=== PATIENT | male | born 1935 | race Caucasian/White ===

== ENCOUNTER 2021-02-03 00:32 | Inpatient (IN) ==
--- NOTE | 2021-02-03 00:18 | Internal Med History&Physical ---
HPI History of Present Illness Patient information: Note initiated : 02/03/21 at 12:17 am Service Date, if different from initiated Date: [] Patient: Marbin Faustin a 85 y/o M admitted on for Septic, Covid+. Chief Complaint: [altered mental status, general body weakness, diarrhea] History of present illness: Mr. Faustin is a 85 year old M history of type 2 diabetes mellitus, essential hypertension's, mixed dyslipidemia, chronic kidney disease, hypothyroidism, leukemia, presenting with 4-day history of general body weakness, altered mental status, diarrhea, and lower back pain. There was no prior similar episode. Patient has a significant sick contact with who was being diagnosed with Covid pneumonia 3 days ago. Patient was in his usual state of health until 4 days ago when he was noted by family to have altered mental status, general body weakness, lower back pain, and diarrhea. He was not complaining of shortness of breath cough or wheezing. There was no note fever, chills, or diaphoresis. There was no nausea or vomiting. Due to the worsening nature of his symptoms, he was being brought to [facility] ED for further evaluations. Vital signs were significant for tachycardia and tachypnea. Labs were significant with leukocytosis with WBC 35 with baseline in the 30s. Procalcitonin level mildly elevated to 0.5. Lactic exit elevated to 3. He was also found to have hyperkalemia with serum potassium level 5.3. Serum creatinine level 2.4. He was given 2.1 L NS fluids boluses as well as 1 dose of Rocephin and Zithromax, respectively. Admission request was made due to bed unavailability in their own hospital. Constitutional Constitutional: Present fatigue and weakness; Absent chills, excessive sweating and fever(s) EENT Eyes: Absent blurry vision, change in vision, loss of vision and other visual disturbances Ears: Absent decreased hearing and tinnitus Nose, mouth and throat: Absent abnormal hearing, dry mouth, headache(s), nasal congestion and sore throat Cardiovascular Cardiovascular: Absent chest pain, chest pain at rest, edema, irregular heart rhythm and palpatations Respiratory Respiratory: Absent cough, dyspnea and wheezing Gastrointestinal Gastrointestinal: Present diarrhea; Absent abdominal pain, constipation, nausea and vomiting Musculoskeletal Musculoskeletal: Absent back pain, deformity, limited range of motion, muscle cramps, muscle weakness and numbness Integumentary Integumentary: Absent lesions, rash and wounds Neurological Neurological: Present confusion; Absent focal weakness, headache(s) and numbness Psychiatric Psychiatric: Absent anxiety, depression and hallucinations PFSH PFSH All Active Problems (Updated 02/03/21 @ 00:27 by Kain Barrett MD) Delirium (Acute) Hyperkalemia (Acute) Community acquired pneumonia (Acute) Pneumonia due to COVID-19 virus (Acute) Acute kidney injury (Acute) Adenocarcinoma, colon (Chronic) Acute allergic reaction (Chronic) Restless leg syndrome (Chronic) Arthritis (Chronic) Carpal tunnel syndrome (Chronic) Syncope (Chronic) Hyperlipidemia (Chronic) Allergic rhinitis (Chronic) Diabetic neuropathy (Chronic) Psoriasis (Chronic) Disc disease with myelopathy, lumbar (Chronic) Spinal stenosis of lumbar region (Chronic) Leukemia, lymphocytic, chronic (Chronic) Hypothyroidism (Chronic) Hypertension (Chronic) Diabetes mellitus (Chronic) Acute right heart failure (Chronic) Medical History (Updated 02/03/21 @ 00:27 by Kain Barrett MD) Acute allergic reaction Acute right heart failure Adenocarcinoma, colon Allergic rhinitis Arthritis Carpal tunnel syndrome Diabetes mellitus Diabetic neuropathy Disc disease with myelopathy, lumbar Hyperlipidemia Hypertension Hypothyroidism Leukemia, lymphocytic, chronic Psoriasis Restless leg syndrome Spinal stenosis of lumbar region Syncope Surgical History (Updated 05/27/19 @ 16:08 by Bibi Cruz) History of colonoscopy (~04/11/13) Dr. Cisneros S/P colon resection (~1997) Family History (Updated 05/27/19 @ 16:08 by Bibi Cruz) Other No pertinent family history Social History (Updated 05/27/19 @ 16:09 by Bibi Cruz) marital status: service: Yes occupational status: retired alcohol intake frequency: does not drink substance use type: does not use MEDS/ALLERGIES Home Medications and Allergies Home Medications Medication Instructions Recorded Confirmed Type Accu-Chek Araceli in Vitro Strip NOTAPPLIC 05/27/19 History Accu-Chek Multiclix Lancets NOTAPPLIC 05/27/19 History Dextrose Solution 24GM/3GM NOTAPPLIC 05/27/19 History blood-glucose meter #1 each 05/27/19 05/27/19 History carbidopa 25 mg-levodopa 100 mg 1 tab PO QHS 05/27/19 05/27/19 History tablet cholecalciferol (vitamin D3) 100 5,000 unit PO QDAY cap 05/27/19 05/27/19 History mcg (4,000 unit) capsule cyanocobalamin (vitamin B-12) 500 500 mcg PO QDAY 05/27/19 05/27/19 History mcg tablet hydrochlorothiazide 25 mg tablet 25 mg PO QDAY 05/27/19 05/27/19 History insulin glargine 100 unit/mL 40 unit SUB-Q QAM ml 05/27/19 05/27/19 History subcutaneous solution levothyroxine 50 mcg tablet 50 mcg PO QDAY 05/27/19 05/27/19 History lisinopril 40 mg tablet 40 mg PO QDAY 05/27/19 05/27/19 History metformin 500 mg tablet 500 mg PO BID 05/27/19 05/27/19 History montelukast 10 mg tablet 10 mg PO QHS 05/27/19 05/27/19 History nifedipine 30 mg tablet,extended 30 mg PO QDAY 05/27/19 05/27/19 History release omeprazole 20 mg capsule,delayed 20 mg PO QDAY 05/27/19 05/27/19 History release potassium chloride 10 mEq 10 meq PO QDAY 05/27/19 05/27/19 History tablet,extended release simvastatin 20 mg tablet 20 mg PO QHS 05/27/19 05/27/19 History Allergies Allergy/AdvReac Type Severity Reaction Status Date / Time Penicillins Allergy Severe Unknown Verified 05/27/19 15:47 shrimp Allergy Intermediate Unknown Verified 05/27/19 15:47 EXAM Constitutional General appearance: cooperative and no acute distress Head Head exam: Present atraumatic and normocephalic Eye Eye exam: Present EOMI and PERRL ENT ENT exam: Present mucous membranes moist, normal exam and normal external ear exam Neck Neck exam: Present normal inspection; Absent lymphadenopathy, tenderness and thyromegaly Respiratory Respiratory exam: Absent accessory muscle use, respiratory distress and wheezes Additional comments: tachypnea Cardiovascular Cardiovascular exam: Present tachycardia; Absent JVD GI/Abdominal GI/Abdominal exam: Present normal bowel sounds and soft; Absent organomegaly and tenderness Rectal Rectal exam: Present deferred Extremities Exam Extremities exam: Present full ROM, normal capillary refill and normal inspection; Absent tenderness Neurological Exam Neurological exam: Present alert and CN II-XII intact; Absent motor sensory deficit and oriented X3 Psychiatric Psychiatric exam: Present normal affect and normal mood; Absent anxious and depressed Skin Skin exam: Present dry and intact A/P Assessment and plan (1) Hyperlipidemia: Status: Chronic (2) Hypothyroidism: Status: Chronic (3) Hypertension: Status: Chronic (4) Diabetes mellitus: Status: Chronic (5) Acute kidney injury: Status: Acute (6) Pneumonia due to COVID-19 virus: Status: Acute (7) Community acquired pneumonia: Status: Acute (8) Hyperkalemia: Status: Acute (9) Delirium: Status: Acute Narrative A/P Narrative: Assessment and plan: 1. Acute delirium likely secondary to acute infections including Covid pneumonia and community-acquired pneumonia: Inpatient PCU with telemetry Isolation protocol, abdomen and contact Serial lactic acid Inflammatory markers Procalcitonin Blood culture CBC with auto differential in the morning to trend WBC Since the patient is tolerating room air, will not initiate either Remdesivir or dexamethasone Rocephin Zithromax Status post 2.1 L NS bolus given in the ED, to be followed by NS at 100 cc/h Robitussin-DM as needed cough Tylenol as needed fever DuoNeb nebulizer as needed wheezing Supplemental oxygen therapy titrate to achieve SPO2 above or equal to 92% Ativan IV as needed anxiety Physical therapy Occupational Therapy #2 hypokalemia: Hold lisinopril Status post 2.1 L NS bolus given in the ED, to be followed by NS at 100 cc/h Repeat CMP in the morning to trend serum potassium level #3 acute kidney injury: Unknown baseline serum creatinine level Avoid nephrotoxic agents and also hold lisinopril Status post 2.1 L NS bolus given in the ED, to be followed by NS at 100 cc/h Repeat CMP in the morning to trend kidney functions #4 type 2 diabetes mellitus: Hemoglobin A1c Hold oral hypoglycemics Lantus 50 units every morning Correctional scale insulin AC at bedtime Accu-Chek AC at bedtime Hypoglycemia protocol Diabetic diet #5 history of essential hypertension's: Currently normotensive Hold lisinopril Continue nifedipine 6. History of mixed dyslipidemia: Continue statin therapy 7. History of leukemia: Questionable history, continue follow-up with outpatient oncologist upon discharge #8 hypothyroidism: Continue thyroid replacement therapy GI prophylaxis: Not currently indicated DVT prophylaxis: Heparin CODE STATUS: Full code Prognosis: Guarded Disposition: Inpatient PCU Time Spent With Patient Time: Total time spent is greater than 50% in coordination of care (as documented) at patient's floor/unit and/or counseling patient: Total time spent with greater than 50% in coordination of care (as documented) at patient's floor/unit and/or counseling patient:: Greater than 35 minutes
[~2021-02-03 00:32] MED LIST: LOPERAMIDE 2 MG CAPSULE PO PRN
[2021-02-03] MEDS ORDERED: DEXTROSE 31 GM ORAL.SUSP PO PRN (01:37)
[2021-02-03] MEDS ORDERED: SENNOSIDES 1 TABLET PO PRN (01:37)
[2021-02-03] MEDS ORDERED: LACTULOSE 20 GM/30 ML ORAL.SOL PO PRN (01:37)
[2021-02-03] MEDS ORDERED: AZITHROMYCIN 500 MG in DEXTROSE 5% IN WATER 250 ML IV SCH (01:37)
[2021-02-03] MEDS ORDERED: ACETAMINOPHEN 325 MG TABLET PO PRN (01:37)
[2021-02-03] MEDS ORDERED: ONDANSETRON 4 MG/2 ML VIAL IV PRN (01:37)
[2021-02-03] MEDS ORDERED: oxyCODONE HCL 5 MG TABLET PO PRN (01:37)
[2021-02-03] MEDS ORDERED: IPRATROPIUM/ALBUTEROL 3 ML AMPUL.NEB NEB PRN (01:37)
[2021-02-03] MEDS ORDERED: cefTRIAXone 1 GM in DEXTROSE 5% IN WATER 50 ML IV SCH (01:37)
[2021-02-03] MEDS ORDERED: guaiFENesin/DEXTROMETHORPHAN ORAL SOL PO PRN (01:37)
[2021-02-03] MEDS: 0.9 % SODIUM CHLORIDE 1,000 ML IV SCH ×3 (01:50→23:16)
[2021-02-03] MEDS: 0.9 % SODIUM CHLORIDE 10 ML SYRINGE IV SCH ×4 (01:51→23:16)
[2021-02-03 03:02] LABS: Basophils # (Auto) 0.07 K/mcL (0.00-0.30); Basophils % (Auto) 0.3 % (0.0-2.0); Eosinophils # (Auto) 0.01 K/mcL (0.00-0.70); Eosinophils % (Auto) 0 % (0.0-7.0); Hematocrit 40.7 % (40.1-51.0); Hemoglobin 13.5 g/dL (13.7-17.5); Lymphocytes # (Auto) 14.42 K/mcL (1.50-4.80); Lymphocytes % (Auto) 64.4 % (15.5-49.0); Mean Cell Volume 97.8 fL (80.0-100.0); Mean Corpuscular HGB Conc 33.2 g/dL (31.0-36.0); Mean Platelet Volume 10.8 fL (7.4-10.4); Monocytes # (Auto) 0.38 K/mcL (0.10-0.90); Monocytes % (Auto) 1.7 % (1.0-12.0); Neutrophils % (Auto) 33.6 % (38.0-78.0); Platelet Count 143 K/mcL (140-440); RBC 4.16 M/mcL (4.63-6.08); WBC 22.4 K/mcL (4.5-11.0)
[2021-02-03 03:08] LABS: ALT/SGPT 38 U/L (<40); AST/SGOT 43 U/L (<40); Albumin 2.8 gm/dL (3.2-5.2); Albumin/Globulin Ratio 0.9 (1.0-2.3); Alkaline Phosphatase 72 U/L (39-117); Bilirubin,Total 0.2 mg/dL (0.1-1.0); Blood Urea Nitrogen 93 mg/dL (8-23); Calcium 8.4 mg/dL (8.6-10.4); Carbon Dioxide 14 mmol/L (22-30); Chloride 114 mmol/L (96-108); Globulin 3.1 gm/dL (2.2-3.7); Glomerular Filtration Rate 26; Glucose 170 mg/dL (70-105)
[2021-02-03] MEDS: morphine 2 MG/ML VIAL IV PRN ×2 (03:41→14:17)
[2021-02-03] MEDS ORDERED: morphine 2 MG/ML VIAL ONE (03:44)
[2021-02-03] MEDS: INSULIN LISPRO 1 UNIT/0.01 ML UNIT SQ SCH ×4 (07:39→23:06)
[2021-02-03] MEDS ORDERED: INSULIN GLARGINE, HUMAN 1 UNIT/0.01 ML SQ SCH (09:00)
[2021-02-03] MEDS ORDERED: NIFEdipine 30 MG TAB.XL.24H PO SCH (09:00)
[2021-02-03] MEDS: DOCUSATE SODIUM 100 MG CAPSULE PO SCH ×2 (09:06→21:36)
[2021-02-03] MEDS: cefTRIAXone 1 GM VIAL IV SCH (09:39)
[2021-02-03] MEDS: HEPARIN 5,000 UNIT/ML VIAL SQ SCH ×2 (09:39→21:48)
[2021-02-03] MEDS: OMEPRAZOLE 20 MG CAPSULE PO SCH (09:48)
[2021-02-03] MEDS: LEVOTHYROXINE 50 MCG TABLET PO SCH (09:48)
[2021-02-03] MEDS: CYANOCOBALAMIN (VITAMIN B-12) 500 MCG TABLET PO SCH (09:49)
[2021-02-03] MEDS: VITAMIN D3 5,000 UNIT TABLET PO SCH (09:49)
[2021-02-03] MEDS ORDERED: LACTOPEROXI/GLUC OXID/POT THIO 1 EACH GEL..EA. TOPICAL PRN (10:10)
[2021-02-03] MEDS ORDERED: ACETAMINOPHEN 500 MG TABLET PO PRN (10:54)
[2021-02-03] MEDS ORDERED: LOPERAMIDE 2 MG CAPSULE PO PRN (10:54)
[2021-02-03] MEDS ORDERED: IBUPROFEN 600 MG TABLET PO PRN (10:54)
[2021-02-03] MEDS: DICLOFENAC SODIUM 1% TOPICAL GEL TOPICAL SCH ×3 (11:43→21:36)
[2021-02-03] MEDS: DEXTROSE 50% 50 ML VIAL IV PRN ×2 (12:13→21:48)
--- NOTE | 2021-02-03 13:46 | Cat Scan Report ---
History: Altered mental status Technique: The brain was imaged without contrast in axial plane at 2.5 mm intervals. Some of the images had to be repeated on account of patient motion artifact. Radiation exposure was limited using dose reduction technology. FINDINGS: Patient has mild to moderate cerebral atrophy, predominantly above the tentorium. This is most apparent around the sylvian fissures. There are ill-defined zones of decreased attenuation in the centrum semiovale in the frontal and parietal lobes bilaterally as well as the external capsules. No infarct is detected. There is no hemorrhage or mass effect. The ventricles are normal in size. No abnormal extra-axial fluid collection is present.. The right frontal sinuses is completely opacified. This may be a combination of chronic sinusitis and incomplete pneumatization of the sinus. There is mild bilateral ethmoid sinusitis. Surgically implanted bands are placed around both left and right orbital globe. The patient also had prior cataract surgery. IMPRESSION: Age-related degenerative changes with atrophy and white matter ischemia or degeneration. No acute abnormality is identified. Interpreted and Authenticated by: Jameson Ramirez 02/03/21
--- NOTE | 2021-02-03 14:00 | Cat Scan Report ---
History: Sepsis, tested positive for Covid, evaluate for pneumonia and intra-abdominal infection TECHNIQUE: The patient was imaged without contrast in axial plane from the thoracic inlet through the symphysis pubis. Sagittal and coronal reformats were created. The radiation exposure was limited using dose reduction technology. Additional axial MIPS images of the chest were acquired. FINDINGS:. CHEST: There is mild emphysema throughout both lungs. Superimposed upon this there are groundglass alveolar infiltrates in the right upper lobe right middle lobe and both lower lobes and lingula. There is sparing of the left upper lobe. Most of the consolidation is in the periphery. There is no lobar consolidation. No pleural effusion is present. There are a few small reactive lymph nodes in the mediastinum. Heart size is normal. Moderate amount of calcified plaque is present in the coronary arteries. Large amount of plaque is present in the thoracic aorta which is normal in caliber. There is a moderate size hiatus hernia. Incidentally noted are couple coarse benign calcifications in the right lobe of the thyroid. The trachea and bronchi are normal. Abdomen and pelvis: Evaluation of the abdominal organs without contrast is somewhat limited. No abnormality is seen within the liver or spleen. The gallbladder appears normal with no stones or thickening of the wall. The bile ducts are nondilated. The pancreas is normal in size and contour. The adrenals are normal. There are several cysts in both kidneys. The largest is located laterally in the middle third of the left kidney and measures 4.2 x 4.5 cm. No solid mass is identified. There is no kidney stone, hydronephrosis or evidence of pyelonephritis. 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 In the right common iliac artery there is a 2.4 cm aneurysm. There is no rupture. The bowel pattern is normal without evidence of inflammation or diverticula. There is a Midline ventral hernia containing fat. This is located between the rectus abdominis muscles. The neck is 4 cm in width. There is no protrusion of bowel into the hernia. Foster catheter is present in the bladder. The bladder is decompressed and there is circumferential thickening of the wall. The prostate is small. There is mass abscess or ascites in the abdomen or pelvis. Degenerative changes are present throughout the spine. There is severe degenerative disc disease and arthritis in the lumbar spine at multiple levels. There is severe spinal canal stenosis at L3-4 and L4-5 and moderate stenosis at L2-3. Impression: Moderate bilateral pneumonia. 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 No evidence of inflammation in the abdomen or pelvis Interpreted and Authenticated by: Jameson Ramirez 02/03/21
[2021-02-03] MEDS: AZITHROMYCIN 500 MG in DEXTROSE 5% IN WATER 250 ML IV SCH (14:04)
--- NOTE | 2021-02-03 14:27 | Internal Med Progress Note ---
SUBJECTIVE Subjective Patient information: Note initiated : 02/03/21 at 2:14 pm Service Date, if different from initiated Date: [] Patient: Marbin Faustin a 85 y/o M admitted on 02/03/21 for Septic, Covid+. Chief Complaint: [] Interval history: Mr. Faustin is a 85 year old M history of type 2 diabetes mellitus, essential hypertension's, mixed dyslipidemia, chronic kidney disease, hypothyroidism, leukemia, presenting with 4-day history of general body weakness, altered mental status, diarrhea, and lower back pain. There was no prior similar episode. Patient has a significant sick contact with who was being diagnosed with Covid pneumonia 3 days ago. Patient was in his usual state of health until 4 days ago when he was noted by family to have altered mental status, general body weakness, lower back pain, and diarrhea. He was not complaining of shortness of breath cough or wheezing. There was no note fever, chills, or diaphoresis. There was no nausea or vomiting. Due to the worsening nature of his symptoms, he was being brought to [facility] ED for further evaluations. Vital signs were significant for tachycardia and tachypnea. Labs were significant with leukocytosis with WBC 35 with baseline in the 30s. Procalcitonin level mildly elevated to 0.5. Lactic exit elevated to 3. He was also found to have hyperkalemia with serum potassium level 5.3. Serum creatinine level 2.4. He was given 2.1 L NS fluids boluses as well as 1 dose of Rocephin and Zithromax, respectively. Admission request was made due to bed unavailability in their own hospital. 02/04: CT chest positive for bilateral pneumonia consistent with COVID-19, CT abdomen/pelvis negative for source of infection/inflammation, CT head did not show any acute abnormality. The patient appears to be in severe pain but unable to describe location. LP with anaesthesia to evaluate for meningitis/encephalitis. Added Vancomycin IV to Ceftriaxone and discontinued Azithromycin. Hypoglycemic this morning and hypernatremic, appears very dry-started D5 1/2 NS. Decreased Lantus to 15 units every morning. Following sodium level. Physical exam General: 85 year old encephalopathic male in distress Head: Atraumatic, normal inspection. Eyes: normal appearance, no scleral icterus. Neck: full ROM Respiratory: no respiratory distress. Cardiovascular: normal rate and rhythm, S1, S2. GI/Abdominal: soft, nontender, no guarding. Extremities: full range of motion, nontender. Neurological: CN II-XII intact, intact motor, intact sensation. Psychiatric: impaired cognition Skin: warm, normal color Constitutional Vitals: Vital Signs Temp Pulse Resp BP Pulse Ox 98.4 F 105 H 21 123/72 91 02/03/21 12:01 02/03/21 12:12 02/03/21 12:12 02/03/21 12:01 02/03/21 12:12 Period Temp Pulse Resp BP Sys/Alvarez Pulse Ox Last 24 Hr 97.7 F-100.2 F 70-112 14-30 76-127/52-77 89-95 Intake and Output 02/03/21 02/03/21 02/03/21 05:59 13:59 21:59 Intake Total 1000 Output Total 400 75 Balance -400 925 Weight 71.395 kg Intake & Output: Intake & Output 02/03/21 02/03/21 02/03/21 05:59 13:59 21:59 Intake Total 1000 Output Total 400 75 Balance -400 925 Weight 71.395 kg Intake: IV 1000 Sodium Chloride 0.9% 1,000 ml @ 1000 100 mls/hr IV .Q10H [facility] Rx#: [id number] Output: Urine Catheter Amount 400 75 Other: Urine Appearance Clear Clear Urine Color Dark Yellow Pale OBJ DATA Labs CBC & Chem 7: 02/04/21 09:43 02/04/21 05:28 Labs: Abnormal Lab Results 02/03/21 02/03/21 02:01 02:01 WBC 22.4 H RBC 4.16 L Hgb 13.5 L MPV 10.8 H Neut % (Auto) 33.6 L Lymph % (Auto) 64.4 H Lymph # (Auto) 14.42 H Chloride 114 H Carbon Dioxide 14 L BUN 93 H Creatinine 2.2 H Glucose 170 H Calcium 8.4 L AST 43 H Albumin 2.8 L Albumin/Globulin Ratio 0.9 L Meds: Medications Acetaminophen (Acetaminophen 325 Mg Tablet) 650 mg PO Q6HP PRN; Protocol PRN Reason: Per Pain Protocol/Fever > 101 Albuterol/Ipratropium (Ipratropium/Albuterol 3 Ml Ampul.Neb) 3 ml NEB Q4HRT PRN PRN Reason: Wheezing Aspirin (Aspirin 81 Mg Tab.Chew) 81 mg PO DAILY [facility] Carbidopa/Levodopa (Carbidopa/Levodopa 25/100 Tablet) 1 tab PO QHS [facility] Ceftriaxone Sodium (Ceftriaxone 1 Gm Vial) 1 gm IV Q24H [facility] Last Admin: 02/03/21 09:39 Dose: 1 gm Documented by: Clopidogrel Bisulfate (Clopidogrel 75 Mg Tablet) 75 mg PO QDAY [facility] Cyanocobalamin (Cyanocobalamin (Vitamin B-12) 500 Mcg Tablet) 500 mcg PO QDAY [facility] Last Admin: 02/03/21 09:49 Dose: Not Given Documented by: Dextrose (Dextrose 50% 50 Ml Vial) 0 ml IV UD PRN PRN Reason: Hypoglycemia Last Admin: 02/03/21 12:13 Dose: 25 ml Documented by: Diagnostic Test (Pha) (Accu-Chek 1 Each Strip) 1 each FS ACHS [facility] Last Admin: 02/03/21 12:12 Dose: 1 each Documented by: Docusate Sodium (Docusate Sodium 100 Mg Capsule) 100 mg PO BID [facility] Last Admin: 02/03/21 09:06 Dose: Not Given Documented by: Glucose (Dextrose 31 Gm Oral.Susp) 15 gm PO PRN PRN PRN Reason: Hypoglycemia Glucose Oxid/Lactoperoxid/Muramidas (Lactoperoxi/Gluc Oxid/Pot Thio 1 Each Gel..Ea.) 1 each TOPICAL PRN PRN PRN Reason: Dry Mouth Guaifenesin (Guaifenesin/Dextromethorphan Oral Akanksha) 10 ml PO Q4HP PRN PRN Reason: Cough Heparin Sodium (Porcine) (Heparin 5,000 Unit/Ml Vial) 5,000 unit SQ Q12 [facility] Last Admin: 02/03/21 09:39 Dose: 5,000 unit Documented by: Sodium Chloride (Sodium Chloride 0.9%) 1,000 mls @ 100 mls/hr IV .Q10H [facility] Last Admin: 02/03/21 12:14 Dose: 100 mls/hr Documented by: Azithromycin 500 mg/ Dextrose 250 mls @ 250 mls/hr IV Q24H [facility]; Protocol Stop: 02/05/21 14:59 Last Admin: 02/03/21 14:04 Dose: 250 mls/hr Documented by: Ibuprofen (Ibuprofen 600 Mg Tablet) 600 mg PO BIDP PRN; Protocol PRN Reason: Pain Insulin Glargine (Insulin Glargine, Human 1 Unit/0.01 Ml) 40 unit SQ [facility] Last Admin: 02/03/21 10:43 Dose: Not Given Documented by: Insulin Human Lispro (Insulin Lispro 1 Unit/0.01 Ml Unit) 0 unit SQ [facility]; Protocol Last Admin: 02/03/21 12:13 Dose: Not Given Documented by: Lactulose (Lactulose 20 Gm/30 Ml Oral.Akanksha) 10 gm PO DAILYP PRN PRN Reason: Constipation Levothyroxine Sodium ([facility]othy[facility] 50 Mcg Tablet) [facility] Last Admin: 02/03/21 09:48 Dose: Not Given Documented by: Loperamide HCl (Loperamide 2 Mg Capsule) 2 mg PO PRN PRN PRN Reason: Diarrhea Loperamide HCl (Loperamide 2 Mg Capsule) 2 mg PO DAILYP PRN PRN Reason: Diarrhea Lorazepam (Lorazepam 2 Mg/Ml Vial) 0.5 mg IV Q4-6HP PRN PRN Reason: ANXIETY/SEDATION Magnesium Oxide (Magnesium Oxide 400 Mg Tablet) 400 mg PO DAILY [facility] Montelukast Sodium (Montelukast 10 Mg Tablet) 10 mg PO QHS [facility] Morphine Sulfate (Morphine 2 Mg/Ml Vial) 2 mg IV Q4HP PRN; Protocol PRN Reason: Per Pain Protocol Last Admin: 02/03/21 03:41 Dose: 2 mg Documented by: Omeprazole (Om[facility]ole 20 Mg Capsule) [facility] Last Admin: 02/03/21 09:48 Dose: Not Given Documented by: Ondansetron HCl (Ondansetron 4 Mg/2 Ml Vial) 4 mg IV Q4HP PRN; Protocol PRN Reason: Nausea And Vomiting Oxycodone HCl (Oxycodone Hcl 5 Mg Tablet) 5 mg PO Q4-6HP PRN; Protocol PRN Reason: Per Pain Protocol Diclofenac Sodium 1% (Topical Gel) 2 - 4 dose TOPICAL QID [facility] Last Admin: 02/03/21 11:43 Dose: Not Given Documented by: Senna (Sennosides 1 Tablet) 2 tab PO HSP PRN PRN Reason: Constipation Simvastatin (Simvastatin 20 Mg Tablet) 20 mg PO QHS [facility] Sodium Chloride (0.9 % Sodium Chloride 10 Ml Syringe) 10 ml IV Q8 [facility] Last Admin: 02/03/21 14:04 Dose: 10 ml Documented by: Vitamin D (Vitamin D3 5,000 Unit Capsule) 5,000 unit PO QDAY [facility] Last Admin: 02/03/21 09:49 Dose: Not Given Documented by: A/P Narrative A/P Narrative: Assessment: 85 year old M history of type 2 diabetes mellitus, hypertension, dyslipidemia, hypothyroidism, CLL, presenting with 4-day history of general body weakness, altered mental status, diarrhea, and lower back pain attributed to COVID-19 and possibly community acquired pneumonia. #Encephalopathy likely infectious secondary to COVID-19 #Probable delirium #Severe COVID-19 pneumonia #Acute kidney injury #Type 2 diabetes mellitus #Essential hypertension #Chronic lymphocytic leukemia #Hypogammaglobulinemia #Hypothyroidism #Emphysema #Degenerative disk disease #Paz catheter Plan -Dexamethasone and Remdesivir. -D5 1/2 NS IV fluid, follow urine output. -Follow renal function. -Holding home HCTZ and Lisinopril. -Monitor respiratory status. -Vancomycin IV and Ceftriaxone. -Lumbar puncture and CSF workup for meningitis/encephalitis. -Lantus and SSI-low. -Delirium bundle. -Remove paz when able. -Essential home meds. -DVT ppx: Heparin -Code status: Full -Disposition: TBD Time Spent With Patient Time: Total time spent is greater than 50% in coordination of care (as documented) at patient's floor/unit and/or counseling patient:
[2021-02-03] MEDS: ACETAMINOPHEN 1,000 MG/100 ML BAG IV PRN (15:28)
[2021-02-03] MEDS: HYDROmorphone 0.5 MG/0.5 ML SYRINGE IV PRN (22:47)
[2021-02-03] MEDS: CARBIDOPA/LEVODOPA 25/100 TABLET PO SCH (23:14)
[2021-02-03] MEDS: MONTELUKAST 10 MG TABLET PO SCH (23:14)
[2021-02-03] MEDS: SIMVASTATIN 20 MG TABLET PO SCH (23:15)
[2021-02-04] MEDS: ACETAMINOPHEN 1,000 MG/100 ML BAG IV PRN ×2 (06:59→21:02)
[2021-02-04] MEDS: 0.9 % SODIUM CHLORIDE 10 ML SYRINGE IV SCH ×3 (06:59→21:05)
[2021-02-04] MEDS: INSULIN LISPRO 1 UNIT/0.01 ML UNIT SQ SCH ×4 (06:59→21:04)
[2021-02-04] MEDS: DEXTROSE 50% 50 ML VIAL IV PRN (07:00)
[2021-02-04] MEDS: OMEPRAZOLE 20 MG CAPSULE PO SCH (07:17)
[2021-02-04] MEDS: LEVOTHYROXINE 50 MCG TABLET PO SCH (07:17)
[2021-02-04] MEDS: DOCUSATE SODIUM 100 MG CAPSULE PO SCH ×2 (08:25→21:04)
[2021-02-04] MEDS: ASPIRIN 81 MG TAB.CHEW PO SCH (08:25)
[2021-02-04] MEDS: MAGNESIUM OXIDE 400 MG TABLET PO SCH (08:25)
[2021-02-04] MEDS: VITAMIN D3 5,000 UNIT TABLET PO SCH (08:26)
[2021-02-04] MEDS: CYANOCOBALAMIN (VITAMIN B-12) 500 MCG TABLET PO SCH (08:26)
[2021-02-04] MEDS: CLOPIDOGREL 75 MG TABLET PO SCH (08:26)
[2021-02-04] MEDS: DICLOFENAC SODIUM 1% TOPICAL GEL TOPICAL SCH ×4 (08:26→21:04)
[2021-02-04 08:29] LABS: Hemoglobin A1C 12.9 % Hgb (4.0-6.0)
[2021-02-04] MEDS: cefTRIAXone 1 GM VIAL IV SCH (08:56)
[2021-02-04] MEDS: HEPARIN 5,000 UNIT/ML VIAL SQ SCH ×2 (08:56→21:04)
[2021-02-04] MEDS: DEXTROSE 5%-1/2NS 1,000 ML IV SCH ×2 (08:56→19:13)
[2021-02-04] MEDS: 0.9 % SODIUM CHLORIDE 1,000 ML IV SCH (09:00)
[2021-02-04] MEDS ORDERED: INSULIN GLARGINE, HUMAN 1 UNIT/0.01 ML SQ SCH (09:00)
[2021-02-04 09:10] LABS: ALT/SGPT 30 U/L (<40); AST/SGOT 43 U/L (<40); Albumin 2.4 gm/dL (3.2-5.2); Albumin/Globulin Ratio 0.8 (1.0-2.3); Alkaline Phosphatase 60 U/L (39-117); Bilirubin,Direct < 0.2 mg/dL (0-0.3); Bilirubin,Total 0.2 mg/dL (0.1-1.0); Blood Urea Nitrogen 57 mg/dL (8-23); Calcium 6.9 mg/dL (8.6-10.4); Carbon Dioxide 13 mmol/L (22-30); Chloride 123 mmol/L (96-108); Globulin 3.1 gm/dL (2.2-3.7); Glomerular Filtration Rate 54; Glucose 76 mg/dL (70-105); Lactate Dehydrogenase 503 U/L (135-225); Phosphorous 2.3 mg/dL (2.5-4.5); Triglycerides 176 mg/dL (<150); Uric Acid 9.9 mg/dL (2.5-8.0)
[2021-02-04 10:42] LABS: Basophils # (Auto) 0.04 K/mcL (0.00-0.30); Basophils % (Auto) 0.3 % (0.0-2.0); Eosinophils # (Auto) 0 K/mcL (0.00-0.70); Eosinophils % (Auto) 0 % (0.0-7.0); Hematocrit 37.7 % (40.1-51.0); Hemoglobin 12.2 g/dL (13.7-17.5); Lymphocytes # (Auto) 9.51 K/mcL (1.50-4.80); Lymphocytes % (Auto) 65.8 % (15.5-49.0); Mean Cell Volume 99.7 fL (80.0-100.0); Mean Corpuscular HGB Conc 32.4 g/dL (31.0-36.0); Mean Platelet Volume 10.9 fL (7.4-10.4); Monocytes # (Auto) 0.24 K/mcL (0.10-0.90); Monocytes % (Auto) 1.7 % (1.0-12.0); Neutrophils % (Auto) 32.2 % (38.0-78.0); Platelet Count 116 K/mcL (140-440); RBC 3.78 M/mcL (4.63-6.08); Red Cell Distribution Width 13.4 % (11.5-14.5); WBC 14.5 K/mcL (4.5-11.0)
[2021-02-04 10:43] LABS: Appearance,Urine HAZY (Clear); Bilirubin,Urine Negative (Negative); Color,Urine YELLOW; Culture Indicated,Urine No; Glucose,Urine (UA) Negative (Negative); Ketones,Urine Negative (Negative); Leukocyte Esterase,Urine Negative /uL (Negative); Nitrate,Urine Negative (Negative); Protein,Urine Negative (Negative); Urine RBC 7 /hpf (0-3); Urine Squamous Epithelial Cell 0 /hpf (0-4); Urine WBC 4 /hpf (0-4); Urobilinogen,Urine Negative
[2021-02-04] MEDS ORDERED: DEXAMETHASONE 10 MG/ML VIAL IV ONE (10:45)
[2021-02-04] MEDS ORDERED: REMDESIVIR 200 MG in 0.9 % SODIUM CHLORIDE 250 ML IV ONE (11:00)
[2021-02-04] MEDS ORDERED: REMDESIVIR 100 MG in 0.9 % SODIUM CHLORIDE 250 ML IV SCH (11:00)
[2021-02-04] MEDS ORDERED: VANCOMYCIN PER PHARMACY IV SCH (11:36)
[2021-02-04] MEDS: HYDROmorphone 0.5 MG/0.5 ML SYRINGE IV PRN ×3 (11:55→22:53)
[2021-02-04] MEDS: VANCOMYCIN 1,000 MG in 0.9 % SODIUM CHLORIDE 250 ML IV SCH (12:24)
[2021-02-04] MEDS: AZITHROMYCIN 500 MG in DEXTROSE 5% IN WATER 250 ML IV SCH (13:39)
[2021-02-04 13:47] LABS: INR 1.2 (0.9-1.1); Prothrombin Time 15.5 sec (11.9-14.5)
[2021-02-04] MEDS: LORazepam 2 MG/ML VIAL IV PRN (14:21)
--- NOTE | 2021-02-04 15:57 | XRay Report ---
HISTORY: Increased confusion, septic, evaluate for meningitis FINDINGS: With the patient lying prone the skin over the lower back was prepped with ill-defined then anesthetized with 1% lidocaine. Using fluoroscopic guidance a 22-gauge needle was inserted into the spinal canal at the L1-2 level. Initially the needle passed through the thecal sac and spinal canal and hit the posterior wall of the body of L2. The needle was withdrawn and fluid aspirated. 10 cc of CSF was removed. The initial 3 cc was clear. The second vial was blood-tinged. This was probably related to the needle insertion. The blood cleared on the third and fourth tubes. Fluid was sent to laboratory for analysis. 37 seconds of fluoroscopy time was used. IMPRESSION: Successful lumbar puncture obtaining 10 cc of CSF Interpreted and Authenticated by: Jameson Ramirez 02/04/21
[2021-02-04 17:18] LABS: Blood Urea Nitrogen 45 mg/dL (8-23); Calcium 7.8 mg/dL (8.6-10.4); Carbon Dioxide 19 mmol/L (22-30); Chloride 119 mmol/L (96-108); Glomerular Filtration Rate 60; Glucose 198 mg/dL (70-105)
[2021-02-04 18:06] LABS: Glucose,CSF 56 mg/dL (40-70)
[2021-02-04 18:53] LABS: Appearance,CSF Clear; Lymphocytes,CSF 58 % (28-96); Neutrophils,CSF 42 % (0-7); Nucleated Cells,CSF 4 /cumm (0-5); Red Blood Cell,CSF 823 /cumm (0-1)
[2021-02-04] MEDS: SIMVASTATIN 20 MG TABLET PO SCH (21:05)
[2021-02-04] MEDS: MONTELUKAST 10 MG TABLET PO SCH (21:05)
[2021-02-04] MEDS: CARBIDOPA/LEVODOPA 25/100 TABLET PO SCH (21:05)
[2021-02-05] MEDS: HYDROmorphone 0.5 MG/0.5 ML SYRINGE IV PRN ×4 (03:37→18:44)
[2021-02-05] MEDS: 0.9 % SODIUM CHLORIDE 10 ML SYRINGE IV SCH ×3 (05:17→21:00)
[2021-02-05] MEDS: DEXTROSE 5%-1/2NS 1,000 ML IV SCH (05:17)
[2021-02-05] MEDS ORDERED: ACYCLOVIR SODIUM 500 MG VIAL IV SCH (07:15)
[2021-02-05] MEDS: ACYCLOVIR SODIUM IV SCH ×3 (07:48→21:04)
[2021-02-05] MEDS: SODIUM CHLORIDE 0.9% IV SCH ×3 (07:48→21:04)
[2021-02-05 08:53] LABS: ALT/SGPT 25 U/L (<40); AST/SGOT 35 U/L (<40); Albumin 2.2 gm/dL (3.2-5.2); Albumin/Globulin Ratio 0.8 (1.0-2.3); Alkaline Phosphatase 54 U/L (39-117); Bilirubin,Direct < 0.2 mg/dL (0-0.3); Bilirubin,Total 0.2 mg/dL (0.1-1.0); Blood Urea Nitrogen 39 mg/dL (8-23); Calcium 7.8 mg/dL (8.6-10.4); Carbon Dioxide 19 mmol/L (22-30); Chloride 117 mmol/L (96-108); Globulin 2.7 gm/dL (2.2-3.7); Glomerular Filtration Rate 60; Glucose 331 mg/dL (70-105); Lactate Dehydrogenase 479 U/L (135-225); Phosphorous 1.9 mg/dL (2.5-4.5); Triglycerides 84 mg/dL (<150)
[2021-02-05 08:59] LABS: Basophils # (Auto) 0.04 K/mcL (0.00-0.30); Basophils % (Auto) 0.2 % (0.0-2.0); Eosinophils # (Auto) 0 K/mcL (0.00-0.70); Eosinophils % (Auto) 0 % (0.0-7.0); Hematocrit 38.8 % (40.1-51.0); Hemoglobin 12.6 g/dL (13.7-17.5); Lymphocytes # (Auto) 10.75 K/mcL (1.50-4.80); Lymphocytes % (Auto) 65.4 % (15.5-49.0); Mean Corpuscular HGB Conc 32.5 g/dL (31.0-36.0); Mean Platelet Volume 11.2 fL (7.4-10.4); Monocytes # (Auto) 0.28 K/mcL (0.10-0.90); Monocytes % (Auto) 1.7 % (1.0-12.0); Neutrophils % (Auto) 32.7 % (38.0-78.0); Platelet Count 111 K/mcL (140-440); RBC 3.88 M/mcL (4.63-6.08); Red Cell Distribution Width 13.5 % (11.5-14.5); WBC 16.4 K/mcL (4.5-11.0)
[2021-02-05] MEDS: INSULIN LISPRO 1 UNIT/0.01 ML UNIT SQ SCH ×3 (09:32→17:12)
[2021-02-05] MEDS: DEXAMETHASONE 10 MG/ML VIAL IV SCH (09:32)
[2021-02-05] MEDS: HEPARIN 5,000 UNIT/ML VIAL SQ SCH ×2 (09:32→21:01)
[2021-02-05] MEDS: INSULIN GLARGINE, HUMAN 1 UNIT/0.01 ML SQ SCH (09:32)
[2021-02-05] MEDS: LEVOTHYROXINE 50 MCG TABLET PO SCH (09:47)
[2021-02-05] MEDS: OMEPRAZOLE 20 MG CAPSULE PO SCH (09:47)
[2021-02-05] MEDS: DOCUSATE SODIUM 100 MG CAPSULE PO SCH ×2 (09:48→20:25)
[2021-02-05] MEDS: ASPIRIN 81 MG TAB.CHEW PO SCH (09:48)
[2021-02-05] MEDS: MAGNESIUM OXIDE 400 MG TABLET PO SCH (09:48)
[2021-02-05] MEDS: CLOPIDOGREL 75 MG TABLET PO SCH (09:49)
[2021-02-05] MEDS: VITAMIN D3 5,000 UNIT TABLET PO SCH (09:49)
[2021-02-05] MEDS: DICLOFENAC SODIUM 1% TOPICAL GEL TOPICAL SCH ×4 (09:49→20:26)
[2021-02-05] MEDS: CYANOCOBALAMIN (VITAMIN B-12) 500 MCG TABLET PO SCH (09:49)
--- NOTE | 2021-02-05 10:04 | XRay Report ---
HISTORY: COVID pneumonia, sepsis FINDINGS: There are mild to moderate alveolar infiltrates in both lungs with the greatest involvement in the left lower lobe. This has improved since the prior chest CT done on 02/03/21. Lung volumes are normal. There is no pleural effusion. The heart size is normal. IMPRESSION: Improving pneumonia Interpreted and Authenticated by: Jameson Ramirez 02/05/21
[2021-02-05] MEDS: VANCOMYCIN 1,000 MG in 0.9 % SODIUM CHLORIDE 250 ML IV SCH (10:21)
[2021-02-05] MEDS: cefTRIAXone 1 GM VIAL IV SCH (10:21)
[2021-02-05] MEDS ORDERED: POTASSIUM PHOSPHATE 40 MEQ in DEXTROSE 5% IN WATER 500 ML IV ONE (11:02)
[2021-02-05] MEDS ORDERED: cefTRIAXone 1 GM VIAL IV ONE (11:15)
[2021-02-05] MEDS: 0.9 % SODIUM CHLORIDE 1,000 ML IV SCH (11:19)
[2021-02-05] MEDS: REMDESIVIR 100 MG in 0.9 % SODIUM CHLORIDE 250 ML IV SCH (11:19)
--- NOTE | 2021-02-05 16:18 | Internal Med Progress Note ---
SUBJECTIVE Subjective Patient information: Note initiated : 02/05/21 at 4:16 pm Service Date, if different from initiated Date: [] Patient: Marbin Faustin a 85 y/o M admitted on 02/03/21 for Septic, Covid+. Chief Complaint: [] Interval history: Mr. Faustin is a 85 year old M history of type 2 diabetes mellitus, essential hypertension's, mixed dyslipidemia, chronic kidney disease, hypothyroidism, leukemia, presenting with 4-day history of general body weakness, altered mental status, diarrhea, and lower back pain. There was no prior similar episode. Patient has a significant sick contact with who was being diagnosed with Covid pneumonia 3 days ago. Patient was in his usual state of health until 4 days ago when he was noted by family to have altered mental status, general body weakness, lower back pain, and diarrhea. He was not complaining of shortness of breath cough or wheezing. There was no note fever, chills, or diaphoresis. There was no nausea or vomiting. Due to the worsening nature of his symptoms, he was being brought to [facility] ED for further evaluations. Vital signs were significant for tachycardia and tachypnea. Labs were significant with leukocytosis with WBC 35 with baseline in the 30s. Procalcitonin level mildly elevated to 0.5. Lactic exit elevated to 3. He was also found to have hyperkalemia with serum potassium level 5.3. Serum creatinine level 2.4. He was given 2.1 L NS fluids boluses as well as 1 dose of Rocephin and Zithromax, respectively. Admission request was made due to bed unavailability in their own hospital. 02/04: CT chest positive for bilateral pneumonia consistent with COVID-19, CT abdomen/pelvis negative for source of infection/inflammation, CT head did not show any acute abnormality. The patient appears to be in severe pain but unable to describe location. LP with anaesthesia to evaluate for meningitis/encephalitis. Added Vancomycin IV to Ceftriaxone and discontinued Azithromycin. Hypoglycemic this morning and hypernatremic, appears very dry-started D5 1/2 NS. Decreased Lantus to 15 units every morning. Following sodium level. 02/05: Increased oxygen requirement, transitioned to CPAP, chest xray shows improvement in bilateral pneumonia, pro-BNP elevated but does not appear volume overloaded, d-dimer elevated-CTA chest ordered. Placed Dobbhoff tube for tube feeding, discussed goals of care with the patient's son-not ready to discuss now as his mother is also hospitalized and in critical care. Physical exam General: 85 year old encephalopathic male in distress Head: Atraumatic, normal inspection. Eyes: normal appearance, no scleral icterus. Neck: full ROM Respiratory: no respiratory distress. Cardiovascular: normal rate and rhythm, S1, S2. GI/Abdominal: soft, nontender, no guarding. Extremities: full range of motion, nontender. Neurological: CN II-XII intact, intact motor, intact sensation. Psychiatric: impaired cognition Skin: warm, normal color Constitutional Vitals: Vital Signs Temp Pulse Resp BP Pulse Ox 98.6 F 87 17 120/64 97 02/05/21 15:01 02/05/21 16:01 02/05/21 16:01 02/05/21 16:01 02/05/21 16:01 Period Temp Pulse Resp BP Sys/Alvarez Pulse Ox Last 24 Hr 97.4 F-99.5 F 65-120 11-28 104-149/54-91 90-97 Intake and Output 02/05/21 02/05/21 02/05/21 05:59 13:59 21:59 Intake Total 1100 600 Output Total 340 450 250 Balance 760 150 -250 Weight 71.622 kg Patient Weight 02/06/21 05:59 Weight 71.622 kg Intake & Output: Intake & Output 02/05/21 02/05/21 02/05/21 05:59 13:59 21:59 Intake Total 1100 600 Output Total 340 450 250 Balance 760 150 -250 Weight 71.622 kg Intake: IV 1100 600 Zovirax 700 mg In Sodium 100 Chloride 0.9% 100 ml @ 100 mls/ hr IV Q8H [facility] Rx#:[id number] Dextrose 5%-1/2Ns IV Solution 1 1000 ,000 ml @ 100 mls/hr IV .Q10H [facility] Rx#:[id number] Veklury 100 mg In Sodium 250 Chloride 0.9% 250 ml @ 500 mls/ hr IV DAILY@1100 [facility] Rx#: [id number] Vancomycin 1,000 mg In Sodium 250 Chloride 0.9% 250 ml @ 250 mls/ hr IV DAILY [facility] Rx#:[id number] Output: Urine Catheter Amount 340 450 250 Other: Urine Appearance Clear Clear Clear Urine Color Bright Yellow Bright Yellow Bright Yellow OBJ DATA Labs CBC & Chem 7: 02/05/21 07:43 02/05/21 07:43 Labs: Abnormal Lab Results 02/05/21 02/05/21 02/05/21 11:25 11:25 07:43 WBC RBC Hgb Hct Plt Count MPV Neut % (Auto) Lymph % (Auto) Lymph # (Auto) PT INR D-Dimer 3.31 H Sodium Chloride 117 H Carbon Dioxide 19 L BUN 39 H Creatinine Glucose 331 H Hemoglobin A1c Uric Acid Calcium 7.8 L Phosphorus 1.9 L AST Lactate Dehydrogenase 479 H C-Reactive Protein NT-Pro-B Natriuret Pep 1582.0 H Total Protein 4.9 L Albumin 2.2 L Albumin/Globulin Ratio 0.8 L Triglycerides Procalcitonin Urine Appearance Urine RBC CSF RBC CSF Neutrophils CSF Total Protein 02/05/21 02/04/21 02/04/21 07:43 16:16 13:03 WBC 16.4 H RBC 3.88 L Hgb 12.6 L Hct 38.8 L Plt Count 111 L MPV 11.2 H Neut % (Auto) 32.7 L Lymph % (Auto) 65.4 H Lymph # (Auto) 10.75 H PT 15.5 H INR 1.2 H D-Dimer Sodium 148 H Chloride 119 H Carbon Dioxide 19 L BUN 45 H Creatinine Glucose 198 H Hemoglobin A1c Uric Acid Calcium 7.8 L Phosphorus AST Lactate Dehydrogenase C-Reactive Protein NT-Pro-B Natriuret Pep Total Protein Albumin Albumin/Globulin Ratio Triglycerides Procalcitonin Urine Appearance Urine RBC CSF RBC CSF Neutrophils CSF Total Protein 02/04/21 02/04/21 02/04/21 09:43 08:39 05:28 WBC 14.5 H RBC 3.78 L Hgb 12.2 L Hct 37.7 L Plt Count 116 L MPV 10.9 H Neut % (Auto) 32.2 L Lymph % (Auto) 65.8 H Lymph # (Auto) 9.51 H PT INR D-Dimer Sodium 152 H Chloride 123 H Carbon Dioxide 13 L BUN 57 H Creatinine Glucose Hemoglobin A1c Uric Acid 9.9 H Calcium 6.9 L Phosphorus 2.3 L AST 43 H Lactate Dehydrogenase 503 H C-Reactive Protein NT-Pro-B Natriuret Pep Total Protein 5.5 L Albumin 2.4 L Albumin/Globulin Ratio 0.8 L Triglycerides 176 H Procalcitonin Urine Appearance Hazy A Urine RBC 7 H CSF RBC CSF Neutrophils CSF Total Protein 02/04/21 02/04/21 02/03/21 05:28 05:28 11:35 WBC RBC Hgb Hct Plt Count MPV Neut % (Auto) Lymph % (Auto) Lymph # (Auto) PT INR D-Dimer Sodium Chloride Carbon Dioxide BUN Creatinine Glucose Hemoglobin A1c Uric Acid Calcium Phosphorus AST Lactate Dehydrogenase C-Reactive Protein 5.40 H NT-Pro-B Natriuret Pep Total Protein Albumin Albumin/Globulin Ratio Triglycerides Procalcitonin 0.21 H Urine Appearance Urine RBC CSF RBC 823 H CSF Neutrophils 42 H CSF Total Protein 61.0 H 02/03/21 02/03/21 02/03/21 06:11 02:01 02:01 WBC 22.4 H RBC 4.16 L Hgb 13.5 L Hct Plt Count MPV 10.8 H Neut % (Auto) 33.6 L Lymph % (Auto) 64.4 H Lymph # (Auto) 14.42 H PT INR D-Dimer Sodium Chloride 114 H Carbon Dioxide 14 L BUN 93 H Creatinine 2.2 H Glucose 170 H Hemoglobin A1c 12.9 H Uric Acid Calcium 8.4 L Phosphorus AST 43 H Lactate Dehydrogenase C-Reactive Protein NT-Pro-B Natriuret Pep Total Protein Albumin 2.8 L Albumin/Globulin Ratio 0.9 L Triglycerides Procalcitonin Urine Appearance Urine RBC CSF RBC CSF Neutrophils CSF Total Protein Meds: Medications Albuterol/Ipratropium (Ipratropium/Albuterol 3 Ml Ampul.Neb) 3 ml NEB Q4HRT PRN PRN Reason: Wheezing Aspirin (Aspirin 81 Mg Tab.Chew) 81 mg PO DAILY [facility] Last Admin: 02/05/21 09:48 Dose: Not Given Documented by: Carbidopa/Levodopa (Carbidopa/Levodopa 25/100 Tablet) 1 tab PO QHS [facility] Last Admin: 02/04/21 21:05 Dose: Not Given Documented by: Chlorhexidine Gluconate (Chlorhexidine Gluconate 1 Ml Oral.Akanksha) 15 ml SWABMOUTH BID [facility] Clopidogrel Bisulfate (Clopidogrel 75 Mg Tablet) 75 mg PO QDAY [facility] Last Admin: 02/05/21 09:49 Dose: Not Given Documented by: Cyanocobalamin (Cyanocobalamin (Vitamin B-12) 500 Mcg Tablet) 500 mcg PO QDAY [facility] Last Admin: 02/05/21 09:49 Dose: Not Given Documented by: Dexamethasone (Dexamethasone 10 Mg/Ml Vial) 6 mg IV DAILY [facility] Stop: 02/13/21 09:01 Last Admin: 02/05/21 09:32 Dose: 6 mg Documented by: Dextrose (Dextrose 50% 50 Ml Vial) 0 ml IV UD PRN PRN Reason: Hypoglycemia Last Admin: 02/04/21 07:00 Dose: 25 ml Documented by: Diagnostic Test (Pha) (Accu-Chek 1 Each Strip) 1 each FS ACHS [facility] Last Admin: 02/05/21 11:45 Dose: 1 each Documented by: Docusate Sodium (Docusate Sodium 100 Mg Capsule) 100 mg PO BID [facility] Last Admin: 02/05/21 09:48 Dose: Not Given Documented by: Glucose (Dextrose 31 Gm Oral.Susp) 15 gm PO PRN PRN PRN Reason: Hypoglycemia Glucose Oxid/Lactoperoxid/Muramidas (Lactoperoxi/Gluc Oxid/Pot Thio 1 Each Gel. .Ea.) 1 each TOPICAL PRN PRN PRN Reason: Dry Mouth Guaifenesin (Guaifenesin/Dextromethorphan Oral Akanksha) 10 ml PO Q4HP PRN PRN Reason: Cough Heparin Sodium (Porcine) (Heparin 5,000 Unit/Ml Vial) 5,000 unit SQ Q12 [facility] Last Admin: 02/05/21 09:32 Dose: 5,000 unit Documented by: Hydromorphone HCl (Hydromorphone 0.5 Mg/0.5 Ml Syringe) 0.5 mg IV Q2HP PRN; Protocol PRN Reason: Per Pain Protocol Last Admin: 02/05/21 13:53 Dose: 0.5 mg Documented by: Acetaminophen (Ofirmev) 1,000 mg in 100 mls @ 200 mls/hr IV Q8HP PRN; Protocol PRN Reason: PAIN/FEVER > 101 Last Infusion: 02/04/21 22:08 Dose: Infused Documented by: REMDESIVIR 100 mg/ Sodium (Chloride) 250 mls @ 500 mls/hr IV DAILY@1100 [facility] Stop: 02/08/21 11:29 Last Infusion: 02/05/21 12:00 Dose: Infused Documented by: Vancomycin HCl 1,000 mg/ (Sodium Chloride) 250 mls @ 250 mls/hr IV DAILY [facility] Last Infusion: 02/05/21 11:30 Dose: Infused Documented by: Acyclovir Sodium 700 mg/ (Sodium Chloride) 100 mls @ 100 mls/hr IV Q8H [facility] Last Admin: 02/05/21 13:53 Dose: 100 mls/hr Documented by: Ceftriaxone Sodium 2 gm/ (Dextrose) 50 mls @ 100 mls/hr IV Q12H [facility] Sodium Chloride (Sodium Chloride 0.9%) 1,000 mls @ 75 mls/hr IV .[id number] [facility] Last Admin: 02/05/21 11:19 Dose: 75 mls/hr Documented by: Insulin Glargine (Insulin Glargine, Human 1 Unit/0.01 Ml) 15 unit SQ QAM [facility] Last Admin: 02/05/21 09:32 Dose: 15 units Documented by: Insulin Human Lispro (Insulin Lispro 1 Unit/0.01 Ml Unit) 0 unit SQ [facility]; Protocol Last Admin: 02/05/21 12:01 Dose: 6 units Documented by: Lactulose (Lactulose 20 Gm/30 Ml Oral.Akanksha) 10 gm PO DAILYP PRN PRN Reason: Constipation Levothyroxine Sodium (Levothyroxine 50 Mcg Tablet) 50 mcg PO QAMAC [facility] Last Admin: 02/05/21 09:47 Dose: Not Given Documented by: Loperamide HCl (Loperamide 2 Mg Capsule) 2 mg PO PRN PRN PRN Reason: Diarrhea Loperamide HCl (Loperamide 2 Mg Capsule) 2 mg PO DAILYP PRN PRN Reason: Diarrhea Lorazepam (Lorazepam 2 Mg/Ml Vial) 0.5 mg IV Q4-6HP PRN PRN Reason: ANXIETY/SEDATION Last Admin: 02/04/21 14:21 Dose: 0.5 mg Documented by: Magnesium Oxide (Magnesium Oxide 400 Mg Tablet) 400 mg PO DAILY [facility] Last Admin: 02/05/21 09:48 Dose: Not Given Documented by: Montelukast Sodium (Montelukast 10 Mg Tablet) 10 mg PO QHS [facility] Last Admin: 02/04/21 21:05 Dose: Not Given Documented by: Ondansetron HCl (Ondansetron 4 Mg/2 Ml Vial) 4 mg IV Q4HP PRN; Protocol PRN Reason: Nausea And Vomiting Oxycodone HCl (Oxycodone Hcl 5 Mg Tablet) 5 mg PO Q4-6HP PRN; Protocol PRN Reason: Per Pain Protocol Pantoprazole Sodium (Pantoprazole 40 Mg Vial) 40 mg IV QAMAC [facility] Diclofenac Sodium 1% (Topical Gel) 2 - 4 dose TOPICAL QID [facility] Last Admin: 02/05/21 12:44 Dose: Not Given Documented by: Pneumococcal Polyvalent Vaccine (Pneumococcal 23-Joaquina P-Sac Vac 0.5 Ml Syringe) 0.5 ml IM .ONCE ONE Stop: 02/07/21 10:01 Senna (Sennosides 1 Tablet) 2 tab PO HSP PRN PRN Reason: Constipation Simvastatin (Simvastatin 20 Mg Tablet) 20 mg PO QHS [facility] Last Admin: 02/04/21 21:05 Dose: Not Given Documented by: Sodium Chloride (0.9 % Sodium Chloride 10 Ml Syringe) 10 ml IV Q8 [facility] Last Admin: 02/05/21 12:45 Dose: 10 ml Documented by: Vancomycin HCl (Vancomycin Per Pharmacy) 1 order IV UD [facility]; Protocol Vitamin D (Vitamin D3 5,000 Unit Capsule) 5,000 unit PO QDAY [facility] Last Admin: 02/05/21 09:49 Dose: Not Given Documented by: A/P Narrative A/P Narrative: Assessment: 85 year old M history of type 2 diabetes mellitus, hypertension, dyslipidemia, hypothyroidism, CLL, presenting with 4-day history of general body weakness, altered mental status, diarrhea, and lower back pain attributed to COVID-19 and possibly community acquired pneumonia. #Encephalopathy of unknown cause, possibly related to COVID-19 #Concern for meningitis/encephalitis #Severe COVID-19 pneumonia #Type 2 diabetes mellitus #Essential hypertension #Chronic lymphocytic leukemia #Hypogammaglobulinemia #Hypothyroidism #Emphysema #Degenerative disk disease #Paz catheter #Resolved acute kidney injury #Resolved hypernatremia Plan -Dexamethasone and Remdesivir. -Oxygen supplementation -CTA chest -Dobhoff tube then start tube feeding and free water boluses, nutrition following -NS IVF, monitor volume status. -Follow CBC, renal function, and electrolytes. -Holding home HCTZ and Lisinopril. -Monitor respiratory status. -Empiric Vancomycin IV and Ceftriaxone for possible meningitis. 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 -CSF cryptococcus antigen. -Lantus and SSI-low. -Delirium bundle. -Remove paz when able. -Essential home meds. -GI ppx: Protonix IV -DVT ppx: Heparin -Code status: Full -Disposition: TBD Time Spent With Patient Time: Total time spent is greater than 50% in coordination of care (as documented) at patient's floor/unit and/or counseling patient:
--- NOTE | 2021-02-05 16:20 | XRay Report ---
HISTORY: Dobbhoff feeding tube insertion FINDINGS: The Dobbhoff feeding tube is positioned with its tip in the distal antrum pointing towards the pylorus. Stomach is decompressed. There are diffuse alveolar infiltrates in both lungs with the greatest involvement in left lower lobe. The bowel gas pattern is normal. IMPRESSION: Well-positioned Dobbhoff feeding tube in the distal antrum of the stomach. ICU was called with the report Interpreted and Authenticated by: Jameson Ramirez 02/05/21
[2021-02-05] MEDS ORDERED: IOPAMIDOL 100 ML BOTTLE IV ONE (18:08)
--- NOTE | 2021-02-05 18:20 | Cat Scan Report ---
History: Covid pneumonia, sepsis, increasing oxygen requirements, elevated serum d-dimer level TECHNIQUE: Following injection of intravenous nonionic contrast the chest was imaged during the arterial phase. Sagittal, coronal and axial MIPS images were created. The radiation exposure was limited using dose reduction technology. FINDINGS: The pulmonary arteries are normal without evidence of emboli. Main pulmonary artery is normal in caliber. The heart is mildly enlarged. Densely calcified plaques are present in the coronary arteries. There is also moderate amount of plaque in the aorta. Aorta is normal in caliber. There are moderately severe groundglass alveolar infiltrates in both lungs with the greatest involvement in the lower lobes. There is involvement in all lobes. The consolidation has become worse since the prior abdomen CT done on 02/03/21. No pneumothorax or pleural effusion are present. There are several blebs in both lower lobes. Moderate size hiatus hernia is present. An NG tube passes through the hiatus hernia into the antrum of the stomach. Again noted are several cysts in both kidneys. IMPRESSION: Worsening pneumonia in both lungs. No evidence of pulmonary emboli Hiatus hernia Cardiomegaly with atherosclerotic coronary artery disease Dr. Arriaza was called with the report Interpreted and Authenticated by: Jameson Ramirez 02/05/21
[2021-02-05] MEDS: LORazepam 2 MG/ML VIAL IV PRN (20:50)
[2021-02-05] MEDS: CHLORHEXIDINE GLUCONATE 1 ML ORAL.SOL SWABMOUTH SCH (20:59)
[2021-02-05] MEDS: MONTELUKAST 10 MG TABLET PO SCH (21:01)
[2021-02-05] MEDS: CARBIDOPA/LEVODOPA 25/100 TABLET PO SCH (21:01)
[2021-02-05] MEDS: SIMVASTATIN 20 MG TABLET PO SCH (21:01)
[2021-02-05] MEDS: cefTRIAXone 2 GM in DEXTROSE 5% IN WATER 50 ML IV SCH (21:04)
[2021-02-06] MEDS: HYDROmorphone 0.5 MG/0.5 ML SYRINGE IV PRN ×4 (00:14→13:24)
[2021-02-06] MEDS: INSULIN LISPRO 1 UNIT/0.01 ML UNIT SQ SCH ×3 (00:27→13:30)
[2021-02-06] MEDS: 0.9 % SODIUM CHLORIDE 1,000 ML IV SCH ×2 (00:36→17:07)
[2021-02-06] MEDS: 0.9 % SODIUM CHLORIDE 10 ML SYRINGE IV SCH ×3 (05:27→21:46)
[2021-02-06] MEDS: ACETAMINOPHEN 1,000 MG/100 ML BAG IV PRN (05:30)
[2021-02-06] MEDS: ACYCLOVIR SODIUM IV SCH ×2 (05:32→15:10)
[2021-02-06] MEDS: SODIUM CHLORIDE 0.9% IV SCH ×2 (05:32→15:10)
[2021-02-06] MEDS ORDERED: PANTOPRAZOLE 40 MG VIAL IV SCH (07:30)
[2021-02-06] MEDS: DOCUSATE SODIUM 100 MG CAPSULE PO SCH (08:27)
[2021-02-06 08:31] LABS: Basophils # (Auto) 0.06 K/mcL (0.00-0.30); Basophils % (Auto) 0.2 % (0.0-2.0); Eosinophils # (Auto) 0 K/mcL (0.00-0.70); Eosinophils % (Auto) 0 % (0.0-7.0); Hemoglobin 12.5 g/dL (13.7-17.5); Lymphocytes # (Auto) 16.88 K/mcL (1.50-4.80); Lymphocytes % (Auto) 67.8 % (15.5-49.0); Mean Cell Volume 100.3 fL (80.0-100.0); Mean Corpuscular HGB Conc 31.3 g/dL (31.0-36.0); Mean Platelet Volume 11.6 fL (7.4-10.4); Monocytes # (Auto) 0.46 K/mcL (0.10-0.90); Monocytes % (Auto) 1.8 % (1.0-12.0); Neutrophils % (Auto) 30.2 % (38.0-78.0); Platelet Count 151 K/mcL (140-440); RBC 3.99 M/mcL (4.63-6.08); Red Cell Distribution Width 13.5 % (11.5-14.5); WBC 24.9 K/mcL (4.5-11.0)
[2021-02-06] MEDS ORDERED: DEXAMETHASONE 10 MG/ML VIAL IV SCH (09:00)
[2021-02-06 09:10] LABS: ALT/SGPT 26 U/L (<40); AST/SGOT 32 U/L (<40); Albumin 2.2 gm/dL (3.2-5.2); Albumin/Globulin Ratio 0.8 (1.0-2.3); Alkaline Phosphatase 64 U/L (39-117); Bilirubin,Direct < 0.2 mg/dL (0-0.3); Bilirubin,Total 0.2 mg/dL (0.1-1.0); Blood Urea Nitrogen 31 mg/dL (8-23); Carbon Dioxide 19 mmol/L (22-30); Chloride 118 mmol/L (96-108); Globulin 2.8 gm/dL (2.2-3.7); Glomerular Filtration Rate 60; Glucose 286 mg/dL (70-105); Lactate Dehydrogenase 605 U/L (135-225); Phosphorous 2.2 mg/dL (2.5-4.5); Triglycerides 111 mg/dL (<150); Uric Acid 5.7 mg/dL (2.5-8.0)
[2021-02-06] MEDS: CHLORHEXIDINE GLUCONATE 1 ML ORAL.SOL SWABMOUTH SCH (09:59)
[2021-02-06] MEDS ORDERED: VANCOMYCIN 1,000 MG in 0.9 % SODIUM CHLORIDE 250 ML IV SCH (10:00)
[2021-02-06] MEDS: INSULIN GLARGINE, HUMAN 1 UNIT/0.01 ML SQ SCH (10:00)
[2021-02-06] MEDS: HEPARIN 5,000 UNIT/ML VIAL SQ SCH (10:00)
[2021-02-06] MEDS: DEXAMETHASONE 10 MG/ML VIAL IV SCH (10:00)
[2021-02-06] MEDS: ASPIRIN 81 MG TAB.CHEW PO SCH (10:01)
[2021-02-06] MEDS: LEVOTHYROXINE 50 MCG TABLET PO SCH (10:01)
[2021-02-06] MEDS: CYANOCOBALAMIN (VITAMIN B-12) 500 MCG TABLET PO SCH (10:01)
[2021-02-06] MEDS: CLOPIDOGREL 75 MG TABLET PO SCH (10:01)
[2021-02-06] MEDS: MAGNESIUM OXIDE 400 MG TABLET PO SCH (10:01)
[2021-02-06] MEDS: VITAMIN D3 5,000 UNIT TABLET PO SCH (10:02)
[2021-02-06] MEDS: VANCOMYCIN 1,000 MG in 0.9 % SODIUM CHLORIDE 250 ML IV SCH (10:14)
[2021-02-06] MEDS: cefTRIAXone 2 GM in DEXTROSE 5% IN WATER 50 ML IV SCH (10:32)
[2021-02-06] MEDS: REMDESIVIR 100 MG in 0.9 % SODIUM CHLORIDE 250 ML IV SCH (10:36)
[2021-02-06] MEDS ORDERED: 0.45 % SODIUM CHLORIDE 1,000 ML IV SCH ×2 (14:45)
--- NOTE | 2021-02-06 14:45 | Internal Med Progress Note ---
SUBJECTIVE Subjective Patient information: Note initiated : 02/06/21 at 2:45 pm Service Date, if different from initiated Date: [] Patient: Marbin Faustin a 85 y/o M admitted on 02/03/21 for Septic, Covid+. Chief Complaint: [] Interval history: Mr. Faustin is a 85 year old M history of type 2 diabetes mellitus, essential hypertension's, mixed dyslipidemia, chronic kidney disease, hypothyroidism, leukemia, presenting with 4-day history of general body weakness, altered mental status, diarrhea, and lower back pain. There was no prior similar episode. Patient has a significant sick contact with who was being diagnosed with Covid pneumonia 3 days ago. Patient was in his usual state of health until 4 days ago when he was noted by family to have altered mental status, general body weakness, lower back pain, and diarrhea. He was not complaining of shortness of breath cough or wheezing. There was no note fever, chills, or diaphoresis. There was no nausea or vomiting. Due to the worsening nature of his symptoms, he was being brought to [facility] ED for further evaluations. Vital signs were significant for tachycardia and tachypnea. Labs were significant with leukocytosis with WBC 35 with baseline in the 30s. Procalcitonin level mildly elevated to 0.5. Lactic exit elevated to 3. He was also found to have hyperkalemia with serum potassium level 5.3. Serum creatinine level 2.4. He was given 2.1 L NS fluids boluses as well as 1 dose of Rocephin and Zithromax, respectively. Admission request was made due to bed unavailability in their own hospital. 02/04: CT chest positive for bilateral pneumonia consistent with COVID-19, CT abdomen/pelvis negative for source of infection/inflammation, CT head did not show any acute abnormality. The patient appears to be in severe pain but unable to describe location. LP with anaesthesia to evaluate for meningitis/encephalitis. Added Vancomycin IV to Ceftriaxone and discontinued Azithromycin. Hypoglycemic this morning and hypernatremic, appears very dry-started D5 1/2 NS. Decreased Lantus to 15 units every morning. Following sodium level. 02/05: Increased oxygen requirement, transitioned to CPAP, chest xray shows improvement in bilateral pneumonia, pro-BNP elevated but does not appear volume overloaded, d-dimer elevated-CTA chest ordered. Placed Dobbhoff tube for tube feeding, discussed goals of care with the patient's son-not ready to discuss now as his mother is also hospitalized and in critical care. 02/06: Continues on CPAP with a FiO2 of 40%, CSF meningitis/encephalitis panel and cryptococcus antigen pending. Continued on empiric Vancomycin, Ceftriaxone, and Acyclovir. Sodium trending up, WBC trending up, increased free water bolus and started 1/5 NS, increased lantus to 25 unit PM and sliding scale insulin to high dose. Physical exam General: 85 year old encephalopathic male in distress Head: Atraumatic, normal inspection. Eyes: normal appearance, no scleral icterus. Neck: full ROM Respiratory: no respiratory distress. Cardiovascular: normal rate and rhythm, S1, S2. GI/Abdominal: soft, nontender, no guarding. Extremities: full range of motion, nontender. Neurological: CN II-XII intact, intact motor, intact sensation. Psychiatric: impaired cognition Skin: warm, normal color Constitutional Vitals: Vital Signs Temp Pulse Resp BP Pulse Ox 98.1 F 101 H 13 124/73 98 02/06/21 07:29 02/06/21 13:05 02/06/21 13:05 02/06/21 10:01 02/06/21 13:05 Period Temp Pulse Resp BP Sys/Alvarez Pulse Ox Last 24 Hr 97.6 F-98.6 F 77-112 12-25 98-159/56-100 90-100 Intake and Output 02/06/21 02/06/21 02/06/21 05:59 13:59 21:59 Intake Total 1319 972 Output Total 645 465 Balance 674 507 Intake & Output: Intake & Output 02/06/21 02/06/21 02/06/21 05:59 13:59 21:59 Intake Total 1319 972 Output Total 645 465 Balance 674 507 Intake: IV 1096 550 Sodium Chloride 0.9% 1,000 ml @ 996 75 mls/hr IV .[id number] [facility] Rx#: [id number] Zovirax 700 mg In Sodium 100 100 Chloride 0.9% 100 ml @ 100 mls/ hr IV Q8H [facility] Rx#:[id number] Veklury 100 mg In Sodium 250 Chloride 0.9% 250 ml @ 500 mls/ hr IV DAILY@1100 [facility] Rx#: [id number] Rocephin 2 gm In Dextrose 5% in 100 Water 50 ml @ 100 mls/hr IV Q12H [facility] Rx#:[id number] Tube Feeding 163 302 GI Tube Flush 60 120 Output: Urine Catheter Amount 645 465 Other: Urine Appearance Clear Clear Uretheral (Paz) Clear Urine Color Bright Yellow Bright Yellow Uretheral (Paz) Bright Yellow OBJ DATA Labs CBC & Chem 7: 02/06/21 05:24 02/06/21 05:24 Labs: Abnormal Lab Results 02/06/21 02/06/21 02/05/21 05:24 05:24 11:25 WBC 24.9 H RBC 3.99 L Hgb 12.5 L Hct 40.0 L MCV 100.3 H Plt Count MPV 11.6 H Neut % (Auto) 30.2 L Lymph % (Auto) 67.8 H Lymph # (Auto) 16.88 H PT INR D-Dimer Sodium 148 H Chloride 118 H Carbon Dioxide 19 L BUN 31 H Glucose 286 H Hemoglobin A1c Uric Acid Calcium 8.0 L Phosphorus 2.2 L AST Lactate Dehydrogenase 605 H C-Reactive Protein NT-Pro-B Natriuret Pep 1582.0 H Total Protein 5.0 L Albumin 2.2 L Albumin/Globulin Ratio 0.8 L Triglycerides Procalcitonin Urine Appearance Urine RBC CSF RBC CSF Neutrophils CSF Total Protein 02/05/21 02/05/21 02/05/21 11:25 07:43 07:43 WBC 16.4 H RBC 3.88 L Hgb 12.6 L Hct 38.8 L MCV Plt Count 111 L MPV 11.2 H Neut % (Auto) 32.7 L Lymph % (Auto) 65.4 H Lymph # (Auto) 10.75 H PT INR D-Dimer 3.31 H Sodium Chloride 117 H Carbon Dioxide 19 L BUN 39 H Glucose 331 H Hemoglobin A1c Uric Acid Calcium 7.8 L Phosphorus 1.9 L AST Lactate Dehydrogenase 479 H C-Reactive Protein NT-Pro-B Natriuret Pep Total Protein 4.9 L Albumin 2.2 L Albumin/Globulin Ratio 0.8 L Triglycerides Procalcitonin Urine Appearance Urine RBC CSF RBC CSF Neutrophils CSF Total Protein 02/04/21 02/04/21 02/04/21 16:16 13:03 09:43 WBC 14.5 H RBC 3.78 L Hgb 12.2 L Hct 37.7 L MCV Plt Count 116 L MPV 10.9 H Neut % (Auto) 32.2 L Lymph % (Auto) 65.8 H Lymph # (Auto) 9.51 H PT 15.5 H INR 1.2 H D-Dimer Sodium 148 H Chloride 119 H Carbon Dioxide 19 L BUN 45 H Glucose 198 H Hemoglobin A1c Uric Acid Calcium 7.8 L Phosphorus AST Lactate Dehydrogenase C-Reactive Protein NT-Pro-B Natriuret Pep Total Protein Albumin Albumin/Globulin Ratio Triglycerides Procalcitonin Urine Appearance Urine RBC CSF RBC CSF Neutrophils CSF Total Protein 02/04/21 02/04/21 02/04/21 08:39 05:28 05:28 WBC RBC Hgb Hct MCV Plt Count MPV Neut % (Auto) Lymph % (Auto) Lymph # (Auto) PT INR D-Dimer Sodium 152 H Chloride 123 H Carbon Dioxide 13 L BUN 57 H Glucose Hemoglobin A1c Uric Acid 9.9 H Calcium 6.9 L Phosphorus 2.3 L AST 43 H Lactate Dehydrogenase 503 H C-Reactive Protein NT-Pro-B Natriuret Pep Total Protein 5.5 L Albumin 2.4 L Albumin/Globulin Ratio 0.8 L Triglycerides 176 H Procalcitonin 0.21 H Urine Appearance Hazy A Urine RBC 7 H CSF RBC CSF Neutrophils CSF Total Protein 02/04/21 02/03/21 02/03/21 05:28 11:35 06:11 WBC RBC Hgb Hct MCV Plt Count MPV Neut % (Auto) Lymph % (Auto) Lymph # (Auto) PT INR D-Dimer Sodium Chloride Carbon Dioxide BUN Glucose Hemoglobin A1c 12.9 H Uric Acid Calcium Phosphorus AST Lactate Dehydrogenase C-Reactive Protein 5.40 H NT-Pro-B Natriuret Pep Total Protein Albumin Albumin/Globulin Ratio Triglycerides Procalcitonin Urine Appearance Urine RBC CSF RBC 823 H CSF Neutrophils 42 H CSF Total Protein 61.0 H Meds: Medications Albuterol/Ipratropium (Ipratropium/Albuterol 3 Ml Ampul.Neb) 3 ml NEB Q4HRT PRN PRN Reason: Wheezing Aspirin (Aspirin 81 Mg Tab.Chew) 81 mg PO DAILY [facility] Last Admin: 02/06/21 10:01 Dose: 81 mg Documented by: Carbidopa/Levodopa (Carbidopa/Levodopa 25/100 Tablet) 1 tab PO QHS [facility] Last Admin: 02/05/21 21:01 Dose: Not Given Documented by: Chlorhexidine Gluconate (Chlorhexidine Gluconate 1 Ml Oral.Akanksha) 15 ml SWABMOUTH BID [facility] Last Admin: 02/06/21 09:59 Dose: 15 ml Documented by: Clopidogrel Bisulfate (Clopidogrel 75 Mg Tablet) 75 mg PO QDAY [facility] Last Admin: 02/06/21 10:01 Dose: 75 mg Documented by: Cyanocobalamin (Cyanocobalamin (Vitamin B-12) 500 Mcg Tablet) 500 mcg PO QDAY [facility] Last Admin: 02/06/21 10:01 Dose: 500 mcg Documented by: Dexamethasone (Dexamethasone 10 Mg/Ml Vial) 6 mg IV DAILY [facility] Stop: 02/13/21 09:01 Last Admin: 02/06/21 10:00 Dose: 6 mg Documented by: Dextrose (Dextrose 50% 50 Ml Vial) 0 ml IV UD PRN PRN Reason: Hypoglycemia Last Admin: 02/04/21 07:00 Dose: 25 ml Documented by: Diagnostic Test (Pha) (Accu-Chek 1 Each Strip) 1 each FS Q6 [facility] Last Admin: 02/06/21 13:30 Dose: 1 each Documented by: Docusate Sodium (Docusate Sodium 100 Mg Capsule) 100 mg PO BID [facility] Last Admin: 02/06/21 08:27 Dose: Not Given Documented by: Glucose (Dextrose 31 Gm Oral.Susp) 15 gm PO PRN PRN PRN Reason: Hypoglycemia Glucose Oxid/Lactoperoxid/Muramidas (Lactoperoxi/Gluc Oxid/Pot Thio 1 Each Gel..Ea.) 1 each TOPICAL PRN PRN PRN Reason: Dry Mouth Guaifenesin (Guaifenesin/Dextromethorphan Oral Akanksha) 10 ml PO Q4HP PRN PRN Reason: Cough Heparin Sodium (Porcine) (Heparin 5,000 Unit/Ml Vial) 5,000 unit SQ Q12 [facility] Last Admin: 02/06/21 10:00 Dose: 5,000 unit Documented by: Hydromorphone HCl (Hydromorphone 0.5 Mg/0.5 Ml Syringe) 0.5 mg IV Q2HP PRN; Protocol PRN Reason: Per Pain Protocol Last Admin: 02/06/21 13:24 Dose: 0.5 mg Documented by: Acetaminophen (Ofirmev) 1,000 mg in 100 mls @ 200 mls/hr IV Q8HP PRN; Protocol PRN Reason: PAIN/FEVER > 101 Last Infusion: 02/06/21 06:36 Dose: Infused Documented by: REMDESIVIR 100 mg/ Sodium (Chloride) 250 mls @ 500 mls/hr IV DAILY@1100 [facility] Stop: 02/08/21 11:29 Last Infusion: 02/06/21 11:30 Dose: Infused Documented by: Acyclovir Sodium 700 mg/ (Sodium Chloride) 100 mls @ 100 mls/hr IV Q8H [facility] Last Infusion: 02/06/21 07:31 Dose: Infused Documented by: Ceftriaxone Sodium 2 gm/ (Dextrose) 50 mls @ 100 mls/hr IV Q12H [facility] Last Infusion: 02/06/21 11:02 Dose: Infused Documented by: Vancomycin HCl 1,000 mg/ (Sodium Chloride) 250 mls @ 250 mls/hr IV Q12H [facility] Last Admin: 02/06/21 10:32 Dose: 250 mls/hr Documented by: Sodium Chloride (Sodium Chloride 0.45%) 1,000 mls @ 75 mls/hr IV .[id number] [facility] Insulin Glargine (Insulin Glargine, Human 1 Unit/0.01 Ml) 15 unit SQ QAM [facility] Last Admin: 02/06/21 10:00 Dose: 15 units Documented by: Insulin Human Lispro (Insulin Lispro 1 Unit/0.01 Ml Unit) 0 unit SQ Q6 [facility]; Protocol Last Admin: 02/06/21 13:30 Dose: 6 unit Documented by: Lactulose (Lactulose 20 Gm/30 Ml Oral.Akanksha) 10 gm PO DAILYP PRN PRN Reason: Constipation Levothyroxine Sodium (Levothyroxine 50 Mcg Tablet) 50 mcg PO QAMAC [facility] Last Admin: 02/06/21 10:01 Dose: 50 mcg Documented by: Loperamide HCl (Loperamide 2 Mg Capsule) 2 mg PO DAILYP PRN PRN Reason: Diarrhea Magnesium Oxide (Magnesium Oxide 400 Mg Tablet) 400 mg PO DAILY [facility] Last Admin: 02/06/21 10:01 Dose: 400 mg Documented by: Ondansetron HCl (Ondansetron 4 Mg/2 Ml Vial) 4 mg IV Q4HP PRN; Protocol PRN Reason: Nausea And Vomiting Oxycodone HCl (Oxycodone Hcl 5 Mg Tablet) 5 mg PO Q4-6HP PRN; Protocol PRN Reason: Per Pain Protocol Pantoprazole Sodium (Pantoprazole 40 Mg Vial) 40 mg IV QAMAC [facility] Last Admin: 02/06/21 06:44 Dose: 40 mg Documented by: Pneumococcal Polyvalent Vaccine (Pneumococcal 23-Joaquina P-Sac Vac 0.5 Ml Syringe) 0.5 ml IM .ONCE ONE Stop: 02/07/21 10:01 Senna (Sennosides 1 Tablet) 2 tab PO HSP PRN PRN Reason: Constipation Simvastatin (Simvastatin 20 Mg Tablet) 20 mg PO QHS [facility] Last Admin: 02/05/21 21:01 Dose: Not Given Documented by: Sodium Chloride (0.9 % Sodium Chloride 10 Ml Syringe) 10 ml IV Q8 [facility] Last Admin: 02/06/21 05:27 Dose: 10 ml Documented by: Vancomycin HCl (Vancomycin Per Pharmacy) 1 order IV UD [facility]; Protocol Vitamin D (Vitamin D3 5,000 Unit Capsule) 5,000 unit PO QDAY [facility] Last Admin: 02/06/21 10:02 Dose: Not Given Documented by: A/P Narrative A/P Narrative: Assessment: 85 year old M history of type 2 diabetes mellitus, hypertension, dyslipidemia, hypothyroidism, CLL, presenting with 4-day history of general body weakness, altered mental status, diarrhea, and lower back pain attributed to COVID-19 and possibly community acquired pneumonia. #Encephalopathy of unknown cause, possibly related to COVID-19 #Concern for meningitis/encephalitis #Severe COVID-19 pneumonia #Hypernatremia #Type 2 diabetes mellitus #Back pain #Essential hypertension #Chronic lymphocytic leukemia #Hypogammaglobulinemia #Hypothyroidism #Emphysema #Degenerative disk disease #Paz catheter #Resolved acute kidney injury Plan -Dexamethasone and Remdesivir. -Oxygen supplementation -Analgesics prn. -Tube feeding and FWB via Dobhoff tube, nutrition following -1/2 NS IVF, monitor volume status. -Follow CBC, renal function, and electrolytes. -Holding home HCTZ and Lisinopril. -Monitor respiratory status. -Empiric Vancomycin IV and Ceftriaxone for possible meningitis. 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 -Follow CSF cryptococcus antigen. -Increase Lantus to 25 units PM and SSI to high. -Delirium bundle. -Remove paz when able. -Essential home meds. -GI ppx: Protonix IV -DVT ppx: Heparin -Code status: Full -Disposition: TBD Time Spent With Patient Time: Total time spent is greater than 50% in coordination of care (as documented) at patient's floor/unit and/or counseling patient:
[2021-02-06] MEDS ORDERED: INSULIN LISPRO 1 UNIT/0.01 ML UNIT SQ SCH (14:46)
[2021-02-06] MEDS ORDERED: LACTOPEROXI/GLUC OXID/POT THIO 1 EACH GEL..EA. TOPICAL PRN (16:12)
[2021-02-06] MEDS ORDERED: ALBUTEROL SULFATE 2.5 MG/3 ML NEBULIZER NEB PRN (16:12)
[2021-02-06] MEDS ORDERED: ONDANSETRON 4 MG/2 ML VIAL IV PRN (16:12)
[2021-02-06] MEDS: HYDROmorphone 1 MG/ML SYRINGE IV PRN ×2 (17:29→21:45)
[2021-02-06] MEDS ORDERED: HYDROmorphone 1 MG/ML SYRINGE ONE (17:34)
[2021-02-06] MEDS: LORazepam 2 MG/ML VIAL IV PRN (21:46)
[2021-02-07] MEDS: HYDROmorphone 1 MG/ML SYRINGE IV PRN ×6 (01:59→22:18)
[2021-02-07] MEDS: LORazepam 2 MG/ML VIAL IV PRN ×6 (01:59→22:19)
[2021-02-07] MEDS: 0.9 % SODIUM CHLORIDE 10 ML SYRINGE IV SCH ×3 (04:35→22:19)
[2021-02-07] MEDS ORDERED: INSULIN GLARGINE, HUMAN 1 UNIT/0.01 ML SQ SCH (09:00)
[2021-02-07] MEDS ORDERED: FLU VACC QS2021-22(6MOS UP)/PF 60 MCG/0.5 ML SYRINGE IM ONE (10:00)
[2021-02-07] MEDS ORDERED: PNEUMOCOCCAL 23-VAL P-SAC VAC 0.5 ML SYRINGE IM ONE (10:00)
[2021-02-07] MEDS ORDERED: LACTOPEROXI/GLUC OXID/POT THIO 1 EACH GEL..EA. TOPICAL PRN (11:49)
[2021-02-07] MEDS ORDERED: ONDANSETRON 4 MG/2 ML VIAL IV PRN (11:49)
[2021-02-07] MEDS ORDERED: IOPAMIDOL 100 ML BOTTLE IV ONE (11:49)
[2021-02-07] MEDS ORDERED: ALBUTEROL SULFATE 2.5 MG/3 ML NEBULIZER NEB PRN (11:49)
--- NOTE | 2021-02-07 13:20 | Internal Med Progress Note ---
SUBJECTIVE Subjective Patient information: Note initiated : 02/07/21 at 1:18 pm Service Date, if different from initiated Date: [] Patient: Marbin Faustin a 85 y/o M admitted on 02/03/21 for Septic, Covid+. Chief Complaint: [] Interval history: Mr. Faustin is a 85 year old M history of type 2 diabetes mellitus, essential hypertension's, mixed dyslipidemia, chronic kidney disease, hypothyroidism, leukemia, presenting with 4-day history of general body weakness, altered mental status, diarrhea, and lower back pain. There was no prior similar episode. Patient has a significant sick contact with who was being diagnosed with Covid pneumonia 3 days ago. Patient was in his usual state of health until 4 days ago when he was noted by family to have altered mental status, general body weakness, lower back pain, and diarrhea. He was not complaining of shortness of breath cough or wheezing. There was no note fever, chills, or diaphoresis. There was no nausea or vomiting. Due to the worsening nature of his symptoms, he was being brought to [facility] ED for further evaluations. Vital signs were significant for tachycardia and tachypnea. Labs were significant with leukocytosis with WBC 35 with baseline in the 30s. Procalcitonin level mildly elevated to 0.5. Lactic exit elevated to 3. He was also found to have hyperkalemia with serum potassium level 5.3. Serum creatinine level 2.4. He was given 2.1 L NS fluids boluses as well as 1 dose of Rocephin and Zithromax, respectively. Admission request was made due to bed unavailability in their own hospital. 02/04: CT chest positive for bilateral pneumonia consistent with COVID-19, CT abdomen/pelvis negative for source of infection/inflammation, CT head did not show any acute abnormality. The patient appears to be in severe pain but unable to describe location. LP with anaesthesia to evaluate for meningitis/encephalitis. Added Vancomycin IV to Ceftriaxone and discontinued Azithromycin. Hypoglycemic this morning and hypernatremic, appears very dry-started D5 1/2 NS. Decreased Lantus to 15 units every morning. Following sodium level. 02/05: Increased oxygen requirement, transitioned to CPAP, chest xray shows improvement in bilateral pneumonia, pro-BNP elevated but does not appear volume overloaded, d-dimer elevated-CTA chest ordered. Placed Dobbhoff tube for tube feeding, discussed goals of care with the patient's son-not ready to discuss now as his mother is also hospitalized and in critical care. 02/06: Continues on CPAP with a FiO2 of 40%, CSF meningitis/encephalitis panel and cryptococcus antigen pending. Continued on empiric Vancomycin, Ceftriaxone, and Acyclovir. Sodium trending up, WBC trending up, increased free water bolus and started 1/5 NS, increased lantus to 25 unit PM and sliding scale insulin to high dose. Later was able to discussed goals of care with the patient's son, Oliver Faustin, he requested that the patient be transitioned to comfort cares. Code status changed to DNR/DNI and comfort cares started. 02/07: Appears comfortable, transferred to [facility] for comfort care. Physical exam General: 85 year old encephalopathic male in distress Head: Atraumatic, normal inspection. Eyes: normal appearance, no scleral icterus. Neck: full ROM Respiratory: no respiratory distress. Cardiovascular: normal rate and rhythm, S1, S2. GI/Abdominal: soft, nontender, no guarding. Extremities: full range of motion, nontender. Neurological: CN II-XII intact, intact motor, intact sensation. Psychiatric: impaired cognition Skin: warm, normal color Constitutional Vitals: Vital Signs Temp Pulse Resp BP Pulse Ox 98.8 F 90 24 H 109/57 72 L 02/07/21 08:44 02/07/21 08:44 02/07/21 08:44 02/07/21 08:44 02/07/21 08:44 Period Temp Pulse Resp BP Sys/Alvarez Pulse Ox Last 24 Hr 98.8 F-99.2 F 87-100 14-24 109-140/57-75 72-94 Intake and Output 02/06/21 02/07/21 02/07/21 21:59 05:59 13:59 Intake Total 1438 Output Total 650 375 Balance 788 -375 Intake & Output: Intake & Output 02/06/21 02/07/21 02/07/21 21:59 05:59 13:59 Intake Total 1438 Output Total 650 375 Balance 788 -375 Intake: IV 1438 Sodium Chloride 0.45% 1,000 ml 338 @ 100 mls/hr IV .Q10H [facility] Rx#: [id number] Sodium Chloride 0.9% 1,000 ml @ 1000 75 mls/hr IV .[id number] [facility] Rx#: [id number] Zovirax 700 mg In Sodium 100 Chloride 0.9% 100 ml @ 100 mls/ hr IV Q8H [facility] Rx#:[id number] Tube Feeding 0 Output: Urine Catheter Amount 650 375 Other: Urine Appearance Clear Clear Uretheral (Foster) Clear Urine Color Dark Yellow Bright Yellow Uretheral (Foster) Bright Yellow OBJ DATA Labs CBC & Chem 7: 02/06/21 05:24 02/06/21 05:24 Labs: Abnormal Lab Results 02/06/21 02/06/21 02/05/21 05:24 05:24 11:25 WBC 24.9 H RBC 3.99 L Hgb 12.5 L Hct 40.0 L MCV 100.3 H Plt Count MPV 11.6 H Neut % (Auto) 30.2 L Lymph % (Auto) 67.8 H Lymph # (Auto) 16.88 H PT INR D-Dimer Sodium 148 H Chloride 118 H Carbon Dioxide 19 L BUN 31 H Glucose 286 H Calcium 8.0 L Phosphorus 2.2 L Lactate Dehydrogenase 605 H NT-Pro-B Natriuret Pep 1582.0 H Total Protein 5.0 L Albumin 2.2 L Albumin/Globulin Ratio 0.8 L CSF RBC CSF Neutrophils CSF Total Protein 02/05/21 02/05/21 02/05/21 11:25 07:43 07:43 WBC 16.4 H RBC 3.88 L Hgb 12.6 L Hct 38.8 L MCV Plt Count 111 L MPV 11.2 H Neut % (Auto) 32.7 L Lymph % (Auto) 65.4 H Lymph # (Auto) 10.75 H PT INR D-Dimer 3.31 H Sodium Chloride 117 H Carbon Dioxide 19 L BUN 39 H Glucose 331 H Calcium 7.8 L Phosphorus 1.9 L Lactate Dehydrogenase 479 H NT-Pro-B Natriuret Pep Total Protein 4.9 L Albumin 2.2 L Albumin/Globulin Ratio 0.8 L CSF RBC CSF Neutrophils CSF Total Protein 02/04/21 02/04/21 02/03/21 16:16 13:03 11:35 WBC RBC Hgb Hct MCV Plt Count MPV Neut % (Auto) Lymph % (Auto) Lymph # (Auto) PT 15.5 H INR 1.2 H D-Dimer Sodium 148 H Chloride 119 H Carbon Dioxide 19 L BUN 45 H Glucose 198 H Calcium 7.8 L Phosphorus Lactate Dehydrogenase NT-Pro-B Natriuret Pep Total Protein Albumin Albumin/Globulin Ratio CSF RBC 823 H CSF Neutrophils 42 H CSF Total Protein 61.0 H Meds: Medications Albuterol Sulfate (Albuterol Sulfate 2.5 Mg/3 Ml Nebulizer) 2.5 mg NEB Q2HP PRN PRN Reason: Shortness Of Breath Glucose Oxid/Lactoperoxid/Muramidas (Lactoperoxi/Gluc Oxid/Pot Thio 1 Each Gel..Ea.) 1 each TOPICAL PRN PRN PRN Reason: Dry Mouth Hydromorphone HCl (Hydromorphone 1 Mg/Ml Syringe) 0.5 - 2 mg IV Q2HP PRN; Protocol PRN Reason: Per Pain Protocol Lorazepam (Lorazepam 2 Mg/Ml Vial) 0 mg IV Q1HP PRN; Protocol PRN Reason: ANXIETY/SEDATION Ondansetron HCl (Ondansetron 4 Mg/2 Ml Vial) 4 mg IV Q4HP PRN; Protocol PRN Reason: Nausea And Vomiting Sodium Chloride (0.9 % Sodium Chloride 10 Ml Syringe) 10 ml IV Q8 [facility] A/P Narrative A/P Narrative: Assessment: 85 year old M history of type 2 diabetes mellitus, hypertension, dyslipidemia, hypothyroidism, CLL, presenting with 4-day history of general body weakness, altered mental status, diarrhea, and lower back pain attributed to COVID-19 and possibly community acquired pneumonia. The patient was admitted to the PCU where he declined clinically. A lumbar puncture was performed and CSF workup take however the cause of encephalopathy was not elucidated. Multiple send out CSF labs still pending. On 02/06/21 the patient was transitioned to comfort cares at his son's request. #End of life care #Encephalopathy of unknown cause, possibly related to COVID-19 #Concern for meningitis/encephalitis #Severe COVID-19 pneumonia #Hypernatremia #Type 2 diabetes mellitus #Back pain #Essential hypertension #Chronic lymphocytic leukemia #Hypogammaglobulinemia #Hypothyroidism #Emphysema #Degenerative disk disease Plan -Comfort cares. Time Spent With Patient Time: Total time spent is greater than 50% in coordination of care (as documented) at patient's floor/unit and/or counseling patient:
[2021-02-08] MEDS: HYDROmorphone 1 MG/ML SYRINGE IV PRN ×4 (02:07→18:33)
[2021-02-08] MEDS: LORazepam 2 MG/ML VIAL IV PRN ×4 (02:08→18:32)
[2021-02-08] MEDS: 0.9 % SODIUM CHLORIDE 10 ML SYRINGE IV SCH ×2 (05:39→14:28)
--- NOTE | 2021-02-08 11:37 | Internal Med Progress Note ---
SUBJECTIVE Subjective Patient information: Note initiated : 02/08/21 at 11:35 am Service Date, if different from initiated Date: [] Patient: Marbin Faustin a 85 y/o M admitted on 02/03/21 for Septic, Covid+. Chief Complaint: [] Interval history: Mr. Faustin is a 85 year old M history of type 2 diabetes mellitus, essential hypertension's, mixed dyslipidemia, chronic kidney disease, hypothyroidism, leukemia, presenting with 4-day history of general body weakness, altered mental status, diarrhea, and lower back pain. There was no prior similar episode. Patient has a significant sick contact with who was being diagnosed with Covid pneumonia 3 days ago. Patient was in his usual state of health until 4 days ago when he was noted by family to have altered mental status, general body weakness, lower back pain, and diarrhea. He was not complaining of shortness of breath cough or wheezing. There was no note fever, chills, or diaphoresis. There was no nausea or vomiting. Due to the worsening nature of his symptoms, he was being brought to [facility] ED for further evaluations. Vital signs were significant for tachycardia and tachypnea. Labs were significant with leukocytosis with WBC 35 with baseline in the 30s. Procalcitonin level mildly elevated to 0.5. Lactic exit elevated to 3. He was also found to have hyperkalemia with serum potassium level 5.3. Serum creatinine level 2.4. He was given 2.1 L NS fluids boluses as well as 1 dose of Rocephin and Zithromax, respectively. Admission request was made due to bed unavailability in their own hospital. 02/04: CT chest positive for bilateral pneumonia consistent with COVID-19, CT abdomen/pelvis negative for source of infection/inflammation, CT head did not show any acute abnormality. The patient appears to be in severe pain but unable to describe location. LP with anaesthesia to evaluate for meningitis/encephalitis. Added Vancomycin IV to Ceftriaxone and discontinued Azithromycin. Hypoglycemic this morning and hypernatremic, appears very dry-started D5 1/2 NS. Decreased Lantus to 15 units every morning. Following sodium level. 02/05: Increased oxygen requirement, transitioned to CPAP, chest xray shows improvement in bilateral pneumonia, pro-BNP elevated but does not appear volume overloaded, d-dimer elevated-CTA chest ordered. Placed Dobbhoff tube for tube feeding, discussed goals of care with the patient's son-not ready to discuss now as his mother is also hospitalized and in critical care. 02/06: Continues on CPAP with a FiO2 of 40%, CSF meningitis/encephalitis panel and cryptococcus antigen pending. Continued on empiric Vancomycin, Ceftriaxone, and Acyclovir. Sodium trending up, WBC trending up, increased free water bolus and s tarted 1/5 NS, increased lantus to 25 unit PM and sliding scale insulin to high dose. Later was able to discussed goals of care with the patient's son, Oliver Faustin, he requested that the patient be transitioned to comfort cares. Code status changed to DNR/DNI and comfort cares started. 02/07: Appears comfortable, transferred to [facility] for comfort care. 02/08: Comfortable on comfort cares. Physical exam General: 85 year old male in no distress Eyes: normal appearance, no scleral icterus. Neck: full ROM Respiratory: rapid shallow breathing Cardiovascular: normal rate and rhythm, S1, S2. GI/Abdominal: soft, nontender, no guarding. Extremities: full range of motion, nontender. Neurological: unresponsive Skin: warm, normal color Constitutional Vitals: Vital Signs Temp Pulse Resp BP Pulse Ox 97.0 F 104 H 24 H 108/70 64 L 02/08/21 08:00 02/08/21 08:00 02/08/21 08:00 02/08/21 08:00 02/08/21 08:00 Period Temp Pulse Resp BP Sys/Alvarez Pulse Ox Last 24 Hr 97.0 F-97.4 F 104-134 20-24 99-108/65-70 52-64 Intake and Output 02/07/21 02/08/21 02/08/21 21:59 05:59 13:59 Intake Total 0 Output Total 750 Balance 0 -750 Intake & Output: Intake & Output 02/07/21 02/08/21 02/08/21 21:59 05:59 13:59 Intake Total 0 Output Total 750 Balance 0 -750 Intake: Oral 0 Output: Urine Catheter Amount 750 Other: Urine Appearance Cloudy Clear Uretheral (Foster) Clear Clear Urine Color Bright Yellow Bright Yellow Uretheral (Foster) Bright Yellow Bright Yellow OBJ DATA Labs CBC & Chem 7: 02/06/21 05:24 02/06/21 05:24 Labs: Abnormal Lab Results 02/06/21 02/06/21 02/05/21 05:24 05:24 11:25 WBC 24.9 H RBC 3.99 L Hgb 12.5 L Hct 40.0 L MCV 100.3 H MPV 11.6 H Neut % (Auto) 30.2 L Lymph % (Auto) 67.8 H Lymph # (Auto) 16.88 H D-Dimer Sodium 148 H Chloride 118 H Carbon Dioxide 19 L BUN 31 H Glucose 286 H Calcium 8.0 L Phosphorus 2.2 L Lactate Dehydrogenase 605 H NT-Pro-B Natriuret Pep 1582.0 H Total Protein 5.0 L Albumin 2.2 L Albumin/Globulin Ratio 0.8 L 02/05/21 11:25 WBC RBC Hgb Hct MCV MPV Neut % (Auto) Lymph % (Auto) Lymph # (Auto) D-Dimer 3.31 H Sodium Chloride Carbon Dioxide BUN Glucose Calcium Phosphorus Lactate Dehydrogenase NT-Pro-B Natriuret Pep Total Protein Albumin Albumin/Globulin Ratio Meds: Medications Albuterol Sulfate (Albuterol Sulfate 2.5 Mg/3 Ml Nebulizer) 2.5 mg NEB Q2HP PRN PRN Reason: Shortness Of Breath Glucose Oxid/Lactoperoxid/Muramidas (Lactoperoxi/Gluc Oxid/Pot Thio 1 Each Gel..Ea.) 1 each TOPICAL PRN PRN PRN Reason: Dry Mouth Hydromorphone HCl (Hydromorphone 1 Mg/Ml Syringe) 0.5 - 2 mg IV Q2HP PRN; Protocol PRN Reason: Per Pain Protocol Last Admin: 02/08/21 05:37 Dose: 1 mg Documented by: Lorazepam (Lorazepam 2 Mg/Ml Vial) 0 mg IV Q1HP PRN; Protocol PRN Reason: ANXIETY/SEDATION Last Admin: 02/08/21 05:38 Dose: 2 mg Documented by: Ondansetron HCl (Ondansetron 4 Mg/2 Ml Vial) 4 mg IV Q4HP PRN; Protocol PRN Reason: Nausea And Vomiting Sodium Chloride (0.9 % Sodium Chloride 10 Ml Syringe) 10 ml IV Q8 OSVALDO Last Admin: 02/08/21 05:39 Dose: 10 ml Documented by: A/P Narrative A/P Narrative: Assessment: 85 year old M history of type 2 diabetes mellitus, hypertension, dyslipidemia, hypothyroidism, CLL, presenting with 4-day history of general body weakness, altered mental status, diarrhea, and lower back pain attributed to COVID-19 and possibly community acquired pneumonia. The patient was admitted to the PCU where he declined clinically. A lumbar puncture was performed and CSF workup take however the cause of encephalopathy was not elucidated. Multiple send out CSF labs still pending. On 02/06/21 the patient was transitioned to comfort cares at his son's request. #End of life care #Encephalopathy of unknown cause, possibly related to COVID-19 #Concern for meningitis/encephalitis #Severe COVID-19 pneumonia #Hypernatremia #Type 2 diabetes mellitus #Back pain #Essential hypertension #Chronic lymphocytic leukemia #Hypogammaglobulinemia #Hypothyroidism #Emphysema #Degenerative disk disease Plan -Comfort cares. Time Spent With Patient Time: Total time spent is greater than 50% in coordination of care (as documented) at patient's floor/unit and/or counseling patient:
--- NOTE | 2021-02-09 07:45 | Death Note ---
Discharge Sum: Prov Provider Patient information: Note initiated : 02/09/21 at 7:42 am Service Date, if different from initiated Date: [] Patient: Marbin Faustin 85 y/o M admitted on 02/03/21 for Septic, Covid+. Chief Complaint: [] Primary care physician: Ariel Jean MD Discharge Sum: Diag Contributing Factors (1) Hyperlipidemia: (2) Hypothyroidism: (3) Hypertension: (4) Diabetes mellitus: (5) Acute kidney injury: (6) Pneumonia due to COVID-19 virus: (7) Community acquired pneumonia: (8) Hyperkalemia: (9) Delirium: Discharge Sum: Summary Date and Time Date of admission: 02/03/21 01:20 Summary Details: Mr. Faustin is a 85 year old M history of type 2 diabetes mellitus, essential hypertension's, mixed dyslipidemia, chronic kidney disease, hypothyroidism, leukemia, presenting with 4-day history of general body weakness, altered mental status, diarrhea, and lower back pain. There was no prior similar episode. Patient has a significant sick contact with who was being diagnosed with Covid pneumonia 3 days ago. Patient was in his usual state of health until 4 days ago when he was noted by family to have altered mental status, general body weakness, lower back pain, and diarrhea. He was not complaining of shortness of breath cough or wheezing. There was no note fever, chills, or diaphoresis. There was no nausea or vomiting. Due to the worsening nature of his symptoms, he was being brought to [facility] ED for further evaluations. Vital signs were significant for tachycardia and tachypnea. Labs were significant with leukocytosis with WBC 35 with baseline in the 30s. Procalcitonin level mildly elevated to 0.5. Lactic exit elevated to 3. He was also found to have hyperkalemia with serum potassium level 5.3. Serum creatinine level 2.4. He was given 2.1 L NS fluids boluses as well as 1 dose of Rocephin and Zithromax, respectively. Admission request was made due to bed unavailability in their own hospital. 02/04: CT chest positive for bilateral pneumonia consistent with COVID-19, CT abdomen/pelvis negative for source of infection/inflammation, CT head did not show any acute abnormality. The patient appears to be in severe pain but unable to describe location. LP with anaesthesia to evaluate for meningitis/encephalitis. Added Vancomycin IV to Ceftriaxone and discontinued Azithromycin. Hypoglycemic this morning and hypernatremic, appears very dry- started D5 1/2 NS. Decreased Lantus to 15 units every morning. Following sodium level. 02/05: Increased oxygen requirement, transitioned to CPAP, chest xray shows improvement in bilateral pneumonia, pro-BNP elevated but does not appear volume overloaded, d-dimer elevated-CTA chest ordered. Placed Dobbhoff tube for tube feeding, discussed goals of care with the patient's son-not ready to discuss now as his mother is also hospitalized and in critical care. 02/06: Continues on CPAP with a FiO2 of 40%, CSF meningitis/encephalitis panel and cryptococcus antigen pending. Continued on empiric Vancomycin, Ceftriaxone, and Acyclovir. Sodium trending up, WBC trending up, increased free water bolus and started 1/5 NS, increased lantus to 25 unit PM and sliding scale insulin to high dose. Later was able to discussed goals of care with the patient's son, Oliver Faustin, he requested that the patient be transitioned to comfort cares. Code status changed to DNR/DNI and comfort cares started. 02/07: Appears comfortable, transferred to [facility] for comfort care. 02/08: Comfortable on comfort cares earlier in the day, the patient on the night of 02/08/21. Additional Data Attending physician: Kain Barrett MD
== END 2021-02-08 20:55 | disposition expired | DRG 177 ==
LOC: ICU 01:20 → MEDSUR 02-07 16:25
PROVIDERS: ADMIT Internal Medicine; ATTEND Internal Medicine